=== PATIENT | male | born 1950 | race Caucasian/White ===

== ENCOUNTER 2016-11-30 09:45 | Emergency (ER) | payer OTHER, MEDICARE ==
[~2016-11-30] VITALS: Ht 180.3 cm; Wt 83.0 kg
[~2016-11-30 09:45] MED LIST: CALC500T42 PO; CIAL5TAB PO; MEDR4PAK3 PO; METH4TAB6 PO; PRIL40CA PO; ST J81CH PO; VITA-13 PO
[2016-11-30 09:52] VITALS: BP 138/96; PULSE 82; RESP 16; TEMP 98.9; O2SAT 97
[2016-11-30] MEDS ORDERED: PRED10 PO ×2 (09:59→10:00)
[2016-11-30] MEDS ORDERED: OMEP40CA2 PO (10:00)
--- NOTE | 2016-11-30 11:19 | RADHPO ---
EXAM DATE/TIME: 11/30/2016 10:34 [facility] COMPARISON: None. INDICATIONS : Left elbow pain MEDICAL HISTORY : None. SURGICAL HISTORY : None. ENCOUNTER: Initial ACUITY: 3 days PAIN SCORE: 6/10 LOCATION: Left posterior elbow. 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 In addition, there is intra-articular edema with winging of the anterior fat pad. I do not see an obvious radial head or lyles pracondylar fracture, however. CONCLUSION: 1. Age-indeterminate avulsion injury presumably off of the olecranon 2. Intra-articular edema. No obvious radial head or supracondylar fracture identified, however. Sinan Subramanian MD Board Certified Radiologist. This report was verified electronically.
[2016-11-30] MEDS ORDERED: NORC5TAB PO (11:30)
--- NOTE | 2016-11-30 11:30 | PD ---
HPI Chief Complaint: Musculoskeletal Complaint Time Seen by Provider: 10:17 Travel History International Travel<30 days: No Contact w/Intl Traveler<30days: No Traveled to known affect area: No History of Present Illness HPI 58-year-old male with complaints of left elbow pain. Patient states she's been treated for noninfectious bursitis by an orthopedic surgeon is been on steroids. He said last night he was lifting a heavy object when he believes he hyperextended his elbow. He's noticed increased swelling and pain since then. He also has a small bruise folding in the lateral anterior olecranon pocket. States it hurts him when he ranges his arm. Denies any other complaints. Denies any shoulder pain and wrist pain back pain other extremity pain. PFSH Past Medical History GERD: Yes Musculoskeletal: Yes (BURSITIS) Tetanus Vaccination: > 5 Years Influenza Vaccination: Yes Social History Alcohol Use: Yes (2 BEERS DAILY) Tobacco Use: No Substance Use: No Allergies-Medications (Allergen,Severity, Reaction): Coded Allergies: No Known Allergies (Unverified , 11/30/16) Reported Meds & Prescriptions Reported Meds & Active Scripts Active Dumas (Hydrocodone-Acetaminophen) 5-325 mg Tab 1 Tab PO Q6H PRN Reported Omeprazole 40 Mg Cap 40 Mg PO DAILY Prednisone 10 Mg Tab 10 Mg PO BID Review of Systems Except as stated in HPI: all other systems reviewed are Neg Physical Exam Narrative GENERAL: Well-nourished, well-developed patient in NAD. SKIN: Warm and dry. HEAD: Normocephalic. EYES: No scleral icterus. No injection or drainage. NECK: Supple, trachea midline. No JVD or lymphadenopathy. CARDIOVASCULAR: Regular rate and rhythm without murmurs, gallops, or rubs. RESPIRATORY: Breath sounds equal bilaterally. No accessory muscle use. GASTROINTESTINAL: Abdomen soft, non-tender, nondistended. MUSCULOSKELETAL: No cyanosis, or edema. Left shoulder is nontender full range of motion left wrist is nontender for range of motion, left hand is nontender for range of motion. Left elbow is limited range of motion by pain in flexion and extension. Patient has full supination and pronation. There is a small bruise forming in the lateral aspect of the left elbow. Minimally tender to palpation over the left bruise. There is no joint effusion but there is some soft tissue swelling. No erythema. Range of motion is at least 235 of extension. Right upper extremity atraumatic. Both upper extremities and sensory are intact and compartments are soft. CT LS spine nontender and and No step-off BACK: Nontender without obvious deformity. No CVA tenderness. Data Data Last Documented VS Vital Signs Date Time Temp Pulse Resp B/P Pulse Ox O2 Delivery O2 Flow Rate FiO2 11/30/16 11:32 71 17 132/83 96 Room Air 11/30/16 09:52 98.9 Orders Elbow, Complete (4 Vws) (11/30/16 ) Splint Or Brace Apply/Monitor (11/30/16 11:28) Fiberglass Sugartong Sp Ad Arm (11/30/16 ) Fiberglass Sugartong Sp Ad Arm (11/30/16 ) Sling Cradle Arm (11/30/16 ) MDM Medical Decision Making Medical Screen Exam Complete: Yes Emergency Medical Condition: Yes Differential Diagnosis Fracture, strain, sprain, bursitis. Narrative Course Patient return to the emergency department, he was offered pain medicine and declined. Infectious enteritis is highly unlikely given he does not have any risk factors and has a range motion. There is no joint effusion that I can find. Patient has x-rays performed which does show an age-indeterminate olecranon avulsion fracture. Patient was placed in a splint to follow with his orthopedic surgeon. Prescribed pain medicine and instructions for rice. Diagnosis Primary Impression: Closed olecranon fracture Qualified Code: S52.022A - Closed olecranon fracture, left, initial encounter Additional Instructions: Follow-up with Dr. Beverly and Dr. Mcclendon as scheduled Med/Other Pt SpecificInfo: Prescription(s) given Scripts Hydrocodone-Acetaminophen ([place])5-325 mg Tab1 Tab PO Q6H PRN (PAIN) #15 TAB Ref 0 Prov:Isaiah Orozco MD 11/30/16 Disposition: 01 DISCHARGE HOME Condition: Stable Isaiah Orozco MD Nov 30, 2016 11:30
[2016-11-30 11:32] VITALS: BP 132/83; PULSE 71; RESP 17; O2SAT 96
== END 2016-11-30 12:22 | disposition home or self-care (01) ==
LOC: PHED 09:45
DX: S52.022A Displaced fracture of olecranon process without intraarticular extension of left ulna, initial encounter for closed fracture (principal); X50.0XXA Overexertion from strenuous movement or load, initial encounter; Y93.89 Activity, other specified
CPT/HCPCS: 29125; 73080

== ENCOUNTER 2017-01-31 17:05 | Inpatient (IN) | payer MEDICARE ==
[~2017-01-31] VITALS: Ht 182.9 cm; Wt 83.7 kg
[~2017-01-31 17:05] MED LIST changes: -CALC500T42 PO; -CIAL5TAB PO; -MEDR4PAK3 PO; -METH4TAB6 PO; +NORC5TAB PO; +OMEP40CA2 PO; +PRED10 PO; -PRIL40CA PO; -ST J81CH PO; -VITA-13 PO
[2017-01-31 17:25] VITALS: BP 145/99; PULSE 81; RESP 16; TEMP 98.6; O2SAT 96
--- NOTE | 2017-01-31 18:13 | PD ---
HPI Chief Complaint: Skin Problem Time Seen by Provider: 17:52 Travel History International Travel<30 days: No Contact w/Intl Traveler<30days: No Traveled to known affect area: No History of Present Illness HPI 66-year-old male complains of pain and swelling and drainage from the left elbow. Patient status post left elbow surgery to repair tendon about 2 weeks ago at [facility]. Patient states that he has increasing redness and swelling since then. Patient states the redness will get worse today and this afternoon patient has plus draining from the wound. Patient denies any fever chills. PFSH Past Medical History GERD: Yes Musculoskeletal: Yes (BURSITIS) Influenza Vaccination: Yes Past Surgical History Abdominal Surgery: Yes (HERNIA REPAIR) Social History Alcohol Use: Yes (2 BEERS DAILY) Tobacco Use: No Substance Use: No Allergies-Medications (Allergen,Severity, Reaction): Coded Allergies: No Known Allergies (Unverified , 01/31/17) Reported Meds & Prescriptions Reported Meds & Active Scripts Active Reported Prednisone 10 Mg Tab 10 Mg PO DAILY Review of Systems General / Constitutional: No: Fever Eyes: No: Visual changes HENT: No: Headaches Cardiovascular: No: Chest Pain or Discomfort Respiratory: No: Shortness of Breath Gastrointestinal: No: Abdominal Pain Genitourinary: No: Dysuria Musculoskeletal: Positive: Pain Skin: No Rash Neurologic: No: Weakness Psychiatric: No: Depression Endocrine: No: Polydipsia Hematologic/Lymphatic: No: Easy Bruising Physical Exam Narrative GENERAL: Well-nourished, well-developed patient. SKIN: Warm and dry. HEAD: Normocephalic. EYES: No scleral icterus. No injection or drainage. NECK: Supple, trachea midline. No JVD or lymphadenopathy. CARDIOVASCULAR: Regular rate and rhythm without murmurs, gallops, or rubs. RESPIRATORY: Breath sounds equal bilaterally. No accessory muscle use. GASTROINTESTINAL: Abdomen soft, non-tender, nondistended. MUSCULOSKELETAL: No cyanosis, or edema. BACK: Nontender without obvious deformity. No CVA tenderness. Patient has redness swelling tenderness posterior aspect the left elbow with large amount of pus draining from the surgical wound. Data Data Last Documented VS Vital Signs Date Time Temp Pulse Resp B/P Pulse Ox O2 Delivery O2 Flow Rate FiO2 01/31/17 17:25 98.6 81 16 145/99 96 Orders Complete Blood Count With Diff (01/31/17 18:05) Basic Metabolic Panel (Bmp) (01/31/17 18:05) Prothrombin Time / Inr (Pt) (01/31/17 18:05) Act Partial Throm Time (Ptt) (01/31/17 18:05) Blood Culture (01/31/17 18:05) Wound Culture And Gram Stain (01/31/17 18:05) Iv Access Insert/Monitor (01/31/17 18:05) Ecg Monitoring (01/31/17 18:05) Oximetry (01/31/17 18:05) Vancomycin Inj (Vancomycin Inj) (01/31/17 18:15) MDM Medical Decision Making Medical Screen Exam Complete: Yes Emergency Medical Condition: Yes Differential Diagnosis Differential diagnosis including wound infection, abscess. Narrative Course 66-year-old male with redness swelling tenderness left elbow and large amount of pus draining from the left elbow. Status post left elbow surgery 2 weeks ago. Vancomycin 1 g IV given. I spoke with Dr. Garcia, covering for Dr. Beverly. Advised medical service admission and consult Dr. Beverly in a.m. Diagnosis Primary Impression: Abscess, elbow Admitting Information Admitting Physician Requests: Admit Preston Altman MD Jan 31, 2017 18:13
[2017-01-31] MEDS ORDERED: VANCOMYCIN INJ 1,000 MG in SODIUM CHLOR 0.9% 250 ML INJ 250 ML IV ONE (18:15)
[2017-01-31 18:31] VITALS: RESP 18; O2SAT 98
[2017-01-31 18:50] VITALS: BP 149/94; PULSE 81; RESP 16; O2SAT 98
[2017-01-31 19:01] LABS: AUTOMATED NEUTROPHIL # 7.9 TH/MM3 (1.8-7.7); BASOPHIL # 0.1 TH/MM3 (0-0.2); BASOPHIL % 0.5 % (0.0-2.0); EOSINOPHIL # 0.2 TH/MM3 (0-0.4); HEMATOCRIT 39.2 % (39.0-51.0); HEMO FLAGS DIFF FINAL; LYMPH % 20.9 % (9.0-44.0); LYMPHOCYTE # 2.5 TH/MM3 (1.0-4.8); MEAN CELL VOLUME 91.5 FL (80.0-100.0); MEAN CORPUSCULAR HEMOGLOBIN 30.9 PG (27.0-34.0); MEAN CORPUSCULAR HGB CONC 33.7 % (32.0-36.0); MONO % 8.5 % (0.0-8.0); NEUT % 68.1 % (16.0-70.0); PLATELET COUNT 417 TH/MM3 (150-450); RED BLOOD COUNT 4.28 MIL/MM3 (4.50-5.90); RED CELL DISTRIBUTION WIDTH 13.2 % (11.6-17.2); WHITE BLOOD COUNT 11.7 TH/MM3 (4.0-11.0)
[2017-01-31 19:08] VITALS: BP 156/99; PULSE 77; RESP 18; O2SAT 97
[2017-01-31 19:14] LABS: POTASSIUM 3.6 MEQ/L (3.5-5.1)
[2017-01-31 19:17] LABS: BICARBONATE 29.6 MEQ/L (21.0-32.0)
[2017-01-31 19:20] LABS: APTT (PATIENT) 31.4 SEC (24.3-30.1)
[2017-01-31] MEDS ORDERED: ACETAMINOPHEN 325 MG TAB PO PRN (19:30)
[2017-01-31] MEDS ORDERED: ONDANSETRON HCL 4 MG/2 ML VIAL IV PRN (19:30)
[2017-01-31] MEDS ORDERED: SODIUM CHLORIDE 0.9% FLUSH 5 ML FLUSH IVF PRN (19:30)
[2017-01-31] MEDS: SODIUM CHLOR 0.9% 1000 ML INJ 1,000 ML IV SCH (20:16)
[2017-01-31 20:21] VITALS: O2SAT 97
[2017-01-31] MEDS: SODIUM CHLORIDE 0.9% FLUSH 5 ML FLUSH IVF SCH (21:00)
[2017-01-31 21:27] VITALS: BP 147/89; PULSE 80; RESP 18; O2SAT 96
[2017-02-01] VITALS: BP 155/88; PULSE 69; RESP 16; TEMP 98.2; O2SAT 93
[2017-02-01 04:00] VITALS: BP 148/81; PULSE 118; RESP 18; TEMP 98.3; O2SAT 96
[2017-02-01] MEDS: SODIUM CHLOR 0.9% 1000 ML INJ 1,000 ML IV SCH ×2 (05:59→16:22)
[2017-02-01] MEDS ORDERED: VANCOMYCIN INJ 1,000 MG in SODIUM CHLOR 0.9% 250 ML INJ 250 ML IV SCH (07:00)
--- NOTE | 2017-02-01 07:12 | PD.CONS ---
cc: Demarcus Beverly MD HPI Service Orthopedic Surgeons Consult Requested By Dr. Altman Reason for Consult abscess left elbow Primary Care Physician Florencio Mcclendon MD Admission Diagnosis left elbow abscess Diagnoses: (1) Septic olecranon bursitis of left elbow Chief Complaint: left elbow drainage History of Present Illness This 66-year-old male is approximately 2-1/2 weeks status post a triceps tendon repair of the left elbow. The patient was seen recently as an outpatient for suture removal. He had mild swelling but no pain or drainage at that time. Yesterday he developed the onset of drainage from the proximal aspect of the incision. He denies any increasing pain. He denies any fevers. He presented to [facility]. The on-call orthopedist instructed the ER staff to admit the patient to the medical service and contact the undersigned today. He has been transported to the main hospital for definitive care. Review of Systems Reviewed and well outlined in the medical record Past Family Social History Past Medical History PFSH Past Medical History GERD: Yes Musculoskeletal: Yes (BURSITIS) Influenza Vaccination: Yes Past Surgical History Abdominal Surgery: Yes (HERNIA REPAIR) Musculoskeletal: Back surgery, triceps tendon repair Social History Alcohol Use: Yes (2 BEERS DAILY) Tobacco Use: No Substance Use: No Allergies-Medications (Allergen,Severity, Reaction): Coded Allergies: No Known Allergies (Unverified , 01/31/17) Reported Meds & Prescriptions Reported Meds & Active Scripts Active Reported Prednisone 10 Mg Tab 10 Mg PO DAILY Review of Systems General / Constitutional: No: Fever Eyes: No: Visual changes HENT: No: Headaches Cardiovascular: No: Chest Pain or Discomfort Respiratory: No: Shortness of Breath Gastrointestinal: No: Abdominal Pain Genitourinary: No: Dysuria Musculoskeletal: Positive: Pain Skin: No Rash Neurologic: No: Weakness Psychiatric: No: Depression Endocrine: No: Polydipsia Hematologic/Lymphatic: No: Easy Bruising Allergies: Coded Allergies: No Known Allergies (Unverified , 01/31/17) Active Ordered Medications Current Medications Medications (Trade) Dose Ordered Sig/Ciara Route Start Time Stop Time Status Last Admin (Zofran Inj) 4 mg Q6H PRN IV 01/31/17 19:30 (Tylenol) 650 mg Q4H PRN PO 01/31/17 19:30 02/01/17 06:19 (NS Flush) 2 ml BID IVF 01/31/17 21:00 01/31/17 21:00 IV Flush 2 ml 2 ml UNSCH PRN IVF 01/31/17 19:30 Vancomycin HCl 1000 mg/Sodium Chloride 250 ml @ 250 mls/hr Q12H IV 02/01/17 07:00 02/01/17 06:21 (NS 1000 ml Inj) 1,000 ml @ 100 mls/hr Q10H IV 01/31/17 19:30 02/01/17 05:59 Reported Meds & Active Scripts Active Reported Prednisone 10 Mg Tab 10 Mg PO DAILY Physical Exam Vital Signs Vital Signs Date Time Temp Pulse Resp B/P Pulse Ox O2 Delivery O2 Flow Rate FiO2 02/01/17 04:00 98.3 118 18 148/81 96 02/01/17 00:00 98.2 69 16 155/88 93 01/31/17 23:35 Room Air 01/31/17 22:19 18 96 01/31/17 21:27 80 18 147/89 96 Room Air 01/31/17 21:27 86 18 01/31/17 20:21 97 21 01/31/17 19:08 78 18 01/31/17 19:08 77 18 156/99 97 Room Air 01/31/17 18:50 81 16 149/94 98 Room Air 01/31/17 18:31 18 98 Room Air 01/31/17 17:25 98.6 81 16 145/99 96 Physical Exam There is a dressing on the left elbow. This was removed. There is dried serous drainage on the dressing. There is no active drainage. There is moderate swelling. There is slight induration and erythema. He has restricted range of motion. There is minimal swelling of the forearm. He moves his wrist and fingers freely. His good pulses. He has good capillary refill and sensation. Laboratory Laboratory Tests Test 01/31/17 18:20 White Blood Count 11.7 Red Blood Count 4.28 Hemoglobin 13.2 Hematocrit 39.2 Mean Corpuscular Volume 91.5 Mean Corpuscular Hemoglobin 30.9 Mean Corpuscular Hemoglobin 33.7 Concent Red Cell Distribution Width 13.2 Platelet Count 417 Mean Platelet Volume 7.6 Neutrophils (%) (Auto) 68.1 Lymphocytes (%) (Auto) 20.9 Monocytes (%) (Auto) 8.5 Eosinophils (%) (Auto) 2.0 Basophils (%) (Auto) 0.5 Neutrophils # (Auto) 7.9 Lymphocytes # (Auto) 2.5 Monocytes # (Auto) 1.0 Eosinophils # (Auto) 0.2 Basophils # (Auto) 0.1 CBC Comment DIFF FINAL Differential Comment Prothrombin Time 11.0 Prothromb Time International 1.0 Ratio Activated Partial 31.4 Thromboplast Time Sodium Level 143 Potassium Level 3.6 Chloride Level 104 Carbon Dioxide Level 29.6 Anion Gap 9 Blood Urea Nitrogen 15 Creatinine 1.10 Estimat Glomerular Filtration 67 Rate Random Glucose 76 Calcium Level 9.1 Date/Time Procedure Status Source Growth 01/31/17 18:25 Aerobic Blood Culture Received Blood Peripheral Pending 01/31/17 18:25 Anaerobic Blood Culture Received Blood Peripheral Pending 01/31/17 18:20 Gram Stain Received Wound Elbow Pending 01/31/17 18:20 Wound Culture Received Wound Elbow Pending Result Diagram: 01/31/17 1820 01/31/17 1820 Assessment & Plan Problem List: (1) Septic olecranon bursitis of left elbow (2) GERD (gastroesophageal reflux disease) Assessment and Plan The findings were discussed. Cultures are pending. Recommendation given for irrigation debridement surgically based upon the fact that anchors are in place for the triceps tendon repair. The nature of the procedure, the risks, expected benefits, as well as the postoperative expectations have been discussed with him in detail. In addition, the alternatives to treatment and risks of same were discussed. The patient acknowledges full understanding and consents to it. Demarcus Beverly MD Feb 01, 2017 07:12
[2017-02-01 08:00] VITALS: BP 134/63; PULSE 71; RESP 20; TEMP 99; O2SAT 95
[2017-02-01] MEDS: SODIUM CHLORIDE 0.9% FLUSH 5 ML FLUSH IVF SCH ×2 (08:16→20:02)
--- NOTE | 2017-02-01 09:16 | RADRPT ---
EXAM DATE/TIME: 02/01/2017 07:29 [facility] COMPARISON: No previous studies available for comparison. INDICATIONS : Left elbow abscess. MEDICAL HISTORY : None. SURGICAL HISTORY : None. Left elbow tendon repair 2 weeks ago. ENCOUNTER: Subsequent ACUITY: 2 weeks PAIN SCORE: 0/10 LOCATION: Left elbow FINDINGS: Two view examination of the left elbow demonstrates irregularity of the cortical margin overlying the olecranon with regional soft tissue swelling. There is also some periosteal reaction along the dorsa l surface of the proximal ulna with faint soft tissue calcification extending cephalad. No findings o f joint effusion or acute fracture. CONCLUSION: 1. Regional soft tissue swelling with disruption of the cortical margin of the olecranon concerning f or a cellulitis and possible osteomyelitis. 2. Periosteal reaction along the dorsum of the proximal humerus and calcification in the more cephala d soft tissues again, concerning for regional inflammation. Sinan Subramanian MD on February 01, 2017 at 9:09 Board Certified Radiologist. This report was verified electronically.
[2017-02-01] MEDS ORDERED: Vancomycin Consult Pharmacy 1 EA OTHER SCH (09:45)
[2017-02-01] MEDS ORDERED: SODIUM CHLORIDE 0.9% FLUSH 5 ML FLUSH FLUSH PRN (10:00)
[2017-02-01] MEDS ORDERED: MORPHINE SULFATE 4 MG/ML INJ IV PRN (10:00)
[2017-02-01] MEDS ORDERED: NALOXONE HCL 0.4 MG/ML AMP IV PRN (10:00)
--- NOTE | 2017-02-01 10:02 | HHI.HP ---
HPI Service [facility] Primary Care Physician Florencio Mcclendon MD Admission Diagnosis left elbow abscess Diagnoses: (1) Septic olecranon bursitis of left elbow Diagnosis: Principal Chief Complaint: Elbow infection Travel History International Travel<30 Days: No Contact w/Intl Traveler <30 Da: No Traveled to Known Affected Are: No History of Present Illness 66-year-old male with past medical history of GERD and fibromyalgia who presented with left elbow pain, swelling, and drainage after surgery 2 weeks ago. 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 He had surgical repair done 2 weeks ago. He states that yesterday he removed the dressing and noted that it was draining pus and was more tender. He states that until then he hasn't noticed any change in his postsurgical pain or range of motion of his left elbow. He denies any fevers or chills. He was seen by orthopedic surgery who plans to perform I&D in the OR today. He had been taking oxycodone for pain for the first week after surgery, has not required any pain medication for the last week. The patient complains of a dull headache. He has some back discomfort currently. He denies any chest pain, shortness breath, nausea, vomiting, numbness, tingling. The patient is on 10 mg of prednisone daily for fibromyalgia by his PCP. He was started on 30 mg last June. Review of Systems Except as stated in HPI: all other systems reviewed are Neg Past Family Social History Past Medical History GERD Fibromyalgia Past Surgical History Left elbow tendon repair 2 weeks. Hernia surgery Back surgery for herniated disc Reported Medications Omeprazole Prednisone 10 Mg Tab 10 Mg PO DAILY Allergies: Coded Allergies: No Known Allergies (Unverified , 01/31/17) Active Ordered Medications Current Medications Medications (Trade) Dose Ordered Sig/Ciara Route Start Time Stop Time Status Last Admin (Zofran Inj) 4 mg Q6H PRN IV 01/31/17 19:30 (Tylenol) 650 mg Q4H PRN PO 01/31/17 19:30 02/01/17 06:19 (NS Flush) 2 ml BID IVF 01/31/17 21:00 01/31/17 21:00 IV Flush 2 ml 2 ml UNSCH PRN IVF 01/31/17 19:30 Vancomycin HCl 1000 mg/Sodium Chloride 250 ml @ 250 mls/hr Q12H IV 02/01/17 07:00 02/01/17 06:21 (NS 1000 ml Inj) 1,000 ml @ 100 mls/hr Q10H IV 01/31/17 19:30 02/01/17 05:59 Family History Father along time ago of an aneurysm Mother is alive and well Social History Drinks 2 beers daily Denies any tobacco or drug use Physical Exam Vital Signs Vital Signs Date Time Temp Pulse Resp B/P Pulse Ox O2 Delivery O2 Flow Rate FiO2 02/01/17 08:00 99.0 71 20 134/63 95 02/01/17 07:51 Room Air 21 02/01/17 04:00 98.3 118 18 148/81 96 02/01/17 00:00 98.2 69 16 155/88 93 01/31/17 23:35 Room Air 01/31/17 22:19 18 96 01/31/17 21:27 80 18 147/89 96 Room Air 01/31/17 21:27 86 18 01/31/17 20:21 97 21 01/31/17 19:08 78 18 01/31/17 19:08 77 18 156/99 97 Room Air 01/31/17 18:50 81 16 149/94 98 Room Air 01/31/17 18:31 18 98 Room Air 01/31/17 17:25 98.6 81 16 145/99 96 Physical Exam GENERAL: Well-developed well-nourished. In no acute distress. SKIN: Warm and dry. Left elbow as below. HEENT: Normocephalic. Pupils equal and round. Mucous membranes pink and moist. CARDIOVASCULAR: Regular rate and rhythm. No murmur appreciated. RESPIRATORY: No accessory muscle use. Clear to auscultation. Breath sounds equal bilaterally. GASTROINTESTINAL: Abdomen soft, non-tender, nondistended. Bowel sounds x4. MUSCULOSKELETAL: Left elbow in a dressing, CDI. Slightly painful ROM. Left forearm swelling. Pulses 2+ bilateral upper extremities. No clubbing or cyanosis. No edema. NEUROLOGICAL: Awake and alert. No focal neurological deficits. Moves upper and lower extremities spontaneously. Normal speech. PSYCHIATRIC: Appropriate mood and affect; insight and judgment normal. Laboratory Laboratory Tests Test 01/31/17 18:20 White Blood Count 11.7 Red Blood Count 4.28 Hemoglobin 13.2 Hematocrit 39.2 Mean Corpuscular Volume 91.5 Mean Corpuscular Hemoglobin 30.9 Mean Corpuscular Hemoglobin 33.7 Concent Red Cell Distribution Width 13.2 Platelet Count 417 Mean Platelet Volume 7.6 Neutrophils (%) (Auto) 68.1 Lymphocytes (%) (Auto) 20.9 Monocytes (%) (Auto) 8.5 Eosinophils (%) (Auto) 2.0 Basophils (%) (Auto) 0.5 Neutrophils # (Auto) 7.9 Lymphocytes # (Auto) 2.5 Monocytes # (Auto) 1.0 Eosinophils # (Auto) 0.2 Basophils # (Auto) 0.1 CBC Comment DIFF FINAL Differential Comment Prothrombin Time 11.0 Prothromb Time International 1.0 Ratio Activated Partial 31.4 Thromboplast Time Sodium Level 143 Potassium Level 3.6 Chloride Level 104 Carbon Dioxide Level 29.6 Anion Gap 9 Blood Urea Nitrogen 15 Creatinine 1.10 Estimat Glomerular Filtration 67 Rate Random Glucose 76 Calcium Level 9.1 Date/Time Procedure Status Source Growth 01/31/17 18:25 Aerobic Blood Culture Received Blood Peripheral Pending 01/31/17 18:25 Anaerobic Blood Culture Received Blood Peripheral Pending 01/31/17 18:20 Gram Stain Received Wound Elbow Pending 01/31/17 18:20 Wound Culture Received Wound Elbow Pending Result Diagram: 01/31/17 1820 01/31/17 1820 Imaging Last Impressions Elbow X-Ray 02/01/17 0000 Signed Impressions: Service Date/Time: Wednesday, February 01, 2017 07:29 - CONCLUSION: 1. Regional soft tissue swelling with disruption of the cortical margin of the olecranon concerning for a cellulitis and possible osteomyelitis. 2. Periosteal reaction along the dorsum of the proximal humerus and calcification in the more cephalad soft tissues again, concerning for regional inflammation. Sinan Subramanian MD Assessment and Plan Problem List: (1) Septic olecranon bursitis of left elbow ICD Code: M70.22 Status: Acute Assessment and Plan 66-year-old male with past medical history of GERD and fibromyalgia who presented with left elbow pain, swelling, and drainage after surgery 2 weeks ago Septic postoperative olecranon bursitis: X-ray reviewed: Shows regional soft tissue swelling instruction of the cortical margin of the olecranon concerning for cellulitis and possibly osteomyelitis. Periosteal reaction on the dorsum of the proximal humerus and calcification in the soft tissues concerning for regional information. Tmax 99.0. WBC 11.7. -The patient's orthopedic surgeon, Dr. Beverly, has been consulted, planning for operative debridement. -Continue IV vancomycin and follow-up wound and blood cultures. -Pain control with oxycodone and IV morphine as needed. Fibromyalgia: Ideally the patient would not be on steroids with acute infection. Decrease dose to 5 mg daily. GERD: Chronic, stable. Continue PPI. DVT prophylaxis: SCDs. Chemical prophylaxis per surgery. Discussed Condition With Patient, RN, Mairto Ochoa Feb 01, 2017 10:02
[2017-02-01] MEDS: DOCUSATE SODIUM 100 MG CAP PO SCH ×2 (11:19→20:07)
[2017-02-01 12:00] VITALS: BP 140/86; PULSE 69; RESP 20; TEMP 97.2; O2SAT 97
[2017-02-01] MEDS ORDERED: PROPOFOL 200 MG/20 ML AMP IV ONE (12:00)
[2017-02-01] MEDS ORDERED: ONDANSETRON HCL 4 MG/2 ML VIAL IV PUSH ONE (12:00)
[2017-02-01] MEDS ORDERED: NEOMYCIN/POLYMYXIN 1 ML G.U. IRRIGANT IR ONE (12:29)
--- NOTE | 2017-02-01 13:14 | PD.OP ---
cc: Demarcus Beverly MD Operative Report Date of Surgery: Feb 01, 2017 Preoperative Diagnosis: (1) Septic olecranon bursitis of left elbow Postoperative Diagnosis: (1) Septic olecranon bursitis of left elbow Procedure: Irrigation and debridement left septic olecranon bursitis with application of wound VAC Anesthesia: Gen. Surgeon: Demarcus Beverly Blanket Maker(s): Dulce Dewitt PA-C ([place]) The surgical procedure was assisted by my physician's special ed assistant. Her presence was necessary throughout the case for manipulation and positioning of the surgical extremity. My PA was assisting me throughout the duration of this procedure. The skill set of the physician special ed assistant was medically necessary to complete this procedure. During the surgical case the surgical oncologist was working at the back table and the physician special ed assistant was directly assisting me. Operation and Findings: Indications: This 66-year-old males approximately 2 and appendectomy weeks status post a left biceps tendon repair. The patient was doing well until yesterday when he developed the onset of drainage from the incision. He presented to [facility]. He was admitted to the medical service. There was active drainage from the incision line and through a small sinus medial to it. Recommendations were given for operative irrigation and debridement. Procedure and findings: Patient was taken to the operative suite and after undergoing an adequate level of general anesthesia was kept supine on the operating table. The patient stated on his regular vancomycin schedule. There was copious drainage from the posterior elbow through a sinus in the central aspect medial to the incision line. The left upper extremity was prepped and draped in usual sterile fashion with Betadine. The previous incision was utilized. This was carried down through skin and subcutaneous tissue with a knife. Previous suture material was removed. The triceps repair was noted to be intact. All necrotic tissue was debrided sharply. Both blunt and sharp dissection were carried out removing any pockets in the subcutaneous tissue. The patient's skin was very friable at the sinus site. This was excised sharply. This did leave a small defect. The wound was thoroughly irrigated with pulse lavage. Cultures were taken prior to the procedure. The wound was closed over a Hemovac drain with 2-0 Vicryl on the subcutaneous tense tissue and 3-0 nylon on the skin. A wound VAC was then applied over the 2 cm defect. Sterile dressings were applied, the patient was awakened transferred to hospital bed and taken to the recovery room in stable condition. Estimated blood loss: 50 cc Complications: None Demarcus Beverly MD Feb 01, 2017 13:14
[2017-02-01] MEDS ORDERED: SODIUM CHLORIDE 0.9% FLUSH 5 ML FLUSH IVF PRN (13:15)
[2017-02-01] MEDS ORDERED: *MEPERIDINE 25 MG INJ VIAL PERIprocedural Use ONLY ONE (13:40)
[2017-02-01] MEDS ORDERED: MORPHINE SULFATE 4 MG/ML INJ ONE (13:44)
[2017-02-01] MEDS ORDERED: *morphine SULFATE 8 MG/ML PERIprocedure ONLY ONE (13:48)
[2017-02-01] MEDS ORDERED: VANCOMYCIN 1,500 MG/NS 500 ML IV SCH ×2 (14:00)
[2017-02-01] MEDS: DEXT 5%-NACL 0.45% 1000 ML INJ 1,000 ML IV SCH ×2 (14:00→23:47)
[2017-02-01] MEDS: VANCOMYCIN 1,500 MG/NS 500 ML IV SCH ×2 (14:47)
[2017-02-01] MEDS ORDERED: DO NOT ADM ANY ANTICOAGULANT DRUGS XX PRN (15:15)
[2017-02-01 16:00] VITALS: BP 141/72; PULSE 79; RESP 20; TEMP 98.8; O2SAT 97
[2017-02-01] MEDS: oxyCODONE/ACETAMINOPHEN 10 MG/325 MG TAB PO PRN (16:48)
[2017-02-01 20:57] VITALS: BP 120/74; PULSE 82; RESP 18; TEMP 98.3; O2SAT 94
[2017-02-01] MEDS ORDERED: SODIUM CHLORIDE 0.9% FLUSH 5 ML FLUSH FLUSH SCH (21:00)
[2017-02-02] VITALS (7 sets, daily range): BP systolic 113–157; BP diastolic 55–87; PULSE 63–78; RESP 16–20; TEMP 97.3–98.2; O2SAT 94–98
[2017-02-02] MEDS: SODIUM CHLOR 0.9% 1000 ML INJ 1,000 ML IV SCH (01:30)
[2017-02-02] MEDS: oxyCODONE/ACETAMINOPHEN 10 MG/325 MG TAB PO PRN (06:00)
[2017-02-02 06:40] LABS: AUTOMATED NEUTROPHIL # 7.2 TH/MM3 (1.8-7.7); BASOPHIL % 0.2 % (0.0-2.0); EOSINOPHIL # 0.1 TH/MM3 (0-0.4); EOSINOPHIL % 0.6 % (0.0-4.0); HEMO FLAGS DIFF FINAL; LYMPH % 13.3 % (9.0-44.0); LYMPHOCYTE # 1.2 TH/MM3 (1.0-4.8); MEAN CELL VOLUME 90.9 FL (80.0-100.0); MEAN CORPUSCULAR HEMOGLOBIN 31.6 PG (27.0-34.0); MEAN CORPUSCULAR HGB CONC 34.8 % (32.0-36.0); MONO % 7.7 % (0.0-8.0); NEUT % 78.2 % (16.0-70.0); PLATELET COUNT 369 TH/MM3 (150-450); RED BLOOD COUNT 3.96 MIL/MM3 (4.50-5.90); RED CELL DISTRIBUTION WIDTH 13.8 % (11.6-17.2); WHITE BLOOD COUNT 9.2 TH/MM3 (4.0-11.0)
[2017-02-02 07:09] LABS: ALT (GPT) 15 U/L (12-78); ANION GAP 7 MEQ/L (5-15); AST (GOT) 7 U/L (15-37); BICARBONATE 26.1 MEQ/L (21.0-32.0); BLOOD UREA NITROGEN 9 MG/DL (7-18); CHLORIDE 106 MEQ/L (98-107); GLOMERULAR FILTRATION RATE 98 ML/MIN (>89); POTASSIUM 4.1 MEQ/L (3.5-5.1); SODIUM (NA) 139 MEQ/L (136-145)
[2017-02-02 07:12] LABS: ALKALINE PHOSPHATASE 63 U/L (45-117); TOTAL BILIRUBIN ADULT 0.3 MG/DL (0.2-1.0)
--- NOTE | 2017-02-02 07:28 | PD.ORT.PN ---
Subjective Post Op Day #: 1 Subjective Remarks Pt sitting upright in bed, awake and answering questions appropriately, sling in tact. Admits left elbow pain is well under control. No other complaints at this time. Objective Vitals Vital Signs Date Time Temp Pulse Resp B/P Pulse Ox O2 Delivery O2 Flow Rate FiO2 02/02/17 05:25 97.3 66 20 131/ 98 02/02/17 00:28 97.9 74 18 143/74 95 02/01/17 20:57 98.3 82 18 120/74 94 02/01/17 19:30 Nasal Cannula 2.00 02/01/17 16:00 98.8 79 20 141/72 97 02/01/17 14:20 72 16 95 Nasal Cannula 2 02/01/17 14:15 97.8 75 16 134/78 95 Nasal Cannula 2 02/01/17 14:00 70 15 134/82 94 Nasal Cannula 2 02/01/17 13:53 15 02/01/17 13:45 69 15 138/84 98 Nasal Cannula 3 02/01/17 13:33 98.5 68 20 149/86 96 Nasal Cannula 3 02/01/17 12:00 97.2 69 20 140/86 97 02/01/17 08:00 99.0 71 20 134/63 95 02/01/17 07:51 Room Air 21 I/O 02/01/17 02/01/17 02/01/17 02/02/17 02/02/17 02/02/17 07:00 15:00 23:00 07:00 15:00 23:00 Intake Total 654 ml 500 ml 800 ml 800 ml Output Total 55 ml 200 ml 500 ml Balance 654 ml 445 ml 600 ml 300 ml Intake Oral 0 ml IV Total 654 ml 100 ml 800 ml 800 ml Other 400 ml Output Urine Total 200 ml 500 ml Drainage Total 5 ml 0 ml Estimated Blood Loss 50 ml # Voids 2 0 # Bowel Movements 0 Result Diagram: 02/02/17 0552 02/02/17 0552 Other Results Microbiology 02/01/17 Gram Stain - Final, Resulted 02/01/17 Wound Culture, Resulted Pending 02/01/17 Acid Fast Stain, Received Pending 02/01/17 Mycobacterial Culture, Received Pending 02/01/17 Fungal Smear - Final, Resulted NO FUNGAL ELEMENTS SEEN. 02/01/17 Fungal Culture, Resulted Pending 02/01/17 Gram Stain, Received Pending 02/01/17 Wound Culture, Received Pending 02/01/17 Fungal Smear, Received Pending 02/01/17 Fungal Culture, Received Pending Imaging Last 48 hours Impressions Elbow X-Ray 02/01/17 0000 Signed Impressions: Service Date/Time: Wednesday, February 01, 2017 07:29 - CONCLUSION: 1. Regional soft tissue swelling with disruption of the cortical margin of the olecranon concerning for a cellulitis and possible osteomyelitis. 2. Periosteal reaction along the dorsum of the proximal humerus and calcification in the more cephalad soft tissues again, concerning for regional inflammation. Sinan Subramanian MD Procedures Irrigation and debridement left septic olecranon bursitis with application of wound VAC (02/01/17) Objective Remarks LUE: Dressing dry and intact. Wac vac and hemavac drain in place and draining appropriately. Sling in place. Tender to palpation with mild swelling around incision site. Appropriate range of motion expected post operatively. Freely able to move wrist and digits. Good cap refill. 2+ pulses. Neurovascular intact. Assessment & Plan Ortho Post Op Day #: 1 Problem List: (1) Septic olecranon bursitis of left elbow (2) Closed olecranon fracture Assessment and Plan Irrigation and debridement left septic olecranon bursitis with application of wound VAC POD #1 s/p Triceps tendon repair Ortho status stable. Progress rehab per protocol, up to 70 degrees of motion. Okay to come out of sling and into ROM brace. Culture and G/S pending. Appreciate medicine's involvement in care. Discharge pending. Dulce Dewitt Feb 02, 2017 07:28
--- NOTE | 2017-02-02 08:31 | HHI.PR ---
Subjective Remarks f/u for elbow bursitis pain partially controlled with pain medications, no fever, nausea, vomiting or diarrhea. Objective Vitals Vital Signs Date Time Temp Pulse Resp B/P Pulse Ox O2 Delivery O2 Flow Rate FiO2 02/02/17 05:25 97.3 66 20 131/ 98 02/02/17 00:28 97.9 74 18 143/74 95 02/01/17 20:57 98.3 82 18 120/74 94 02/01/17 19:30 Nasal Cannula 2.00 02/01/17 16:00 98.8 79 20 141/72 97 02/01/17 14:20 72 16 95 Nasal Cannula 2 02/01/17 14:15 97.8 75 16 134/78 95 Nasal Cannula 2 02/01/17 14:00 70 15 134/82 94 Nasal Cannula 2 02/01/17 13:53 15 02/01/17 13:45 69 15 138/84 98 Nasal Cannula 3 02/01/17 13:33 98.5 68 20 149/86 96 Nasal Cannula 3 02/01/17 12:00 97.2 69 20 140/86 97 I/O 02/01/17 02/01/17 02/01/17 02/02/17 02/02/17 02/02/17 07:00 15:00 23:00 07:00 15:00 23:00 Intake Total 654 ml 500 ml 800 ml 800 ml Output Total 55 ml 200 ml 500 ml Balance 654 ml 445 ml 600 ml 300 ml Intake Oral 0 ml IV Total 654 ml 100 ml 800 ml 800 ml Other 400 ml Output Urine Total 200 ml 500 ml Drainage Total 5 ml 0 ml Estimated Blood Loss 50 ml # Voids 2 0 # Bowel Movements 0 Result Diagram: 02/02/17 0552 02/02/17 0552 Objective Remarks GENERAL: Well-developed well-nourished. In no acute distress. SKIN: Warm and dry. Left elbow as below. HEENT: Normocephalic. Pupils equal and round. CARDIOVASCULAR: Regular rate and rhythm. No murmur appreciated. RESPIRATORY: No accessory muscle use. Clear to auscultation. Breath sounds equal bilaterally. GASTROINTESTINAL: Abdomen soft, non-tender, nondistended. Bowel sounds x4. MUSCULOSKELETAL: Left elbow in a dressing, CDI. Hand good range of motion, no distal swelling or erythema. No edema. NEUROLOGICAL: Awake and alert. No focal neurological deficits. Moves upper and lower extremities spontaneously. Normal speech. PSYCHIATRIC: Appropriate mood and affect; insight and judgment normal. Procedures Irrigation and debridement left septic olecranon bursitis with application of wound VAC A/P Problem List: (1) Septic olecranon bursitis of left elbow ICD Code: M70.22 Status: Acute Assessment and Plan 66-year-old male with past medical history of GERD and fibromyalgia who presented with left elbow pain, swelling, and drainage after surgery 2 weeks ago Septic postoperative olecranon bursitis: Initially we close olecranon fracture status post triceps tendon repair, X-ray reviewed: Shows regional soft tissue swelling instruction of the cortical margin of the olecranon concerning for cellulitis and possibly osteomyelitis. Periosteal reaction on the dorsum of the proximal humerus and calcification in the soft tissues concerning for regional information. Orthopedics Dr. Beverly, has been consulted, had Irrigation and debridement left septic olecranon bursitis with application of wound VAC, follow-up wound cultures, continue intravenous vancomycin for now, monitor creatinine, blood cultures negative to date, continue pain control with oxycodone and IV morphine as needed. Leukocytosis resolved. Range of motion per orthopedics. Fibromyalgia: Ideally the patient would not be on steroids with acute infection. Continue prednisone 5 mg daily. GERD: Chronic, stable. Continue PPI. DVT prophylaxis: SCDs. Chemical prophylaxis per surgery. Discharge Planning Discharge in a day or 2 once cultures are finalized Nicolle Fischer MD Feb 02, 2017 08:31
[2017-02-02] MEDS: PANTOPRAZOLE SOD 40 MG DELAYED RELEASE TAB PO SCH (09:00)
[2017-02-02] MEDS: SODIUM CHLORIDE 0.9% FLUSH 5 ML FLUSH IVF SCH ×2 (09:00→20:44)
[2017-02-02] MEDS: DOCUSATE SODIUM 100 MG CAP PO SCH ×2 (09:00→20:45)
[2017-02-02] MEDS: predniSONE 5 MG TAB PO SCH (09:00)
[2017-02-02] MEDS: VANCOMYCIN 1,500 MG/NS 500 ML IV SCH ×2 (09:01)
[2017-02-02] MEDS: DEXT 5%-NACL 0.45% 1000 ML INJ 1,000 ML IV SCH (09:02)
--- NOTE | 2017-02-02 10:37 | EKG ---
Date Performed: 02/01/2017 Time Performed: 11:44:00 PTAGE: 66 years EKG: Sinus rhythm WITH FIRST DEGREE AV BLOCK INFERIOR MYOCARDIAL INFARCTION , OF INDETERMINATE AGE ABNORMAL ECG NO PREVIOUS TRACING DOCTOR: Gasper Jett Interpretating Date/Time 02/02/2017 10:35:51
[2017-02-02] MEDS: oxyCODONE/ACETAMINOPHEN 5 MG/325 MG TAB PO PRN ×2 (12:02→18:06)
[2017-02-02] MEDS ORDERED: VANCOMYCIN 1,500 MG/NS 500 ML IV SCH ×2 (20:00)
[2017-02-03] VITALS (7 sets, daily range): BP systolic 140–154; BP diastolic 81–92; PULSE 61–78; RESP 16–20; TEMP 97.3–98.2; O2SAT 94–97
[2017-02-03] MEDS: oxyCODONE/ACETAMINOPHEN 10 MG/325 MG TAB PO PRN ×4 (00:03→19:01)
--- NOTE | 2017-02-03 07:05 | PD.ORT.PN ---
Subjective Post Op Day #: 2 Pain Scale: 4 Subjective Remarks The patient is awake alert and answers questions appropriately. He is having mild left elbow pain. He has no other specific complaint. Objective Vitals Vital Signs Date Time Temp Pulse Resp B/P Pulse Ox O2 Delivery O2 Flow Rate FiO2 02/03/17 04:00 97.8 61 18 154/92 95 02/03/17 00:00 98.0 62 18 140/84 94 02/02/17 20:00 97.8 75 18 145/87 95 02/02/17 19:45 Nasal Cannula 2.00 02/02/17 16:00 98.2 76 16 129/75 95 02/02/17 12:07 97.8 63 16 157/81 94 02/02/17 09:06 97.7 78 16 136/81 96 02/02/17 08:31 97 21 I/O 02/02/17 02/02/17 02/02/17 02/03/17 02/03/17 02/03/17 07:00 15:00 23:00 07:00 15:00 23:00 Intake Total 800 ml 720 ml 600 ml 240 ml Output Total 500 ml 1000 ml Balance 300 ml 720 ml 600 ml -760 ml Intake Oral 720 ml 600 ml 240 ml IV Total 800 ml Output Urine Total 500 ml 1000 ml Drainage Total 0 ml # Voids 3 2 # Bowel Movements 0 0 Result Diagram: 02/02/17 0552 02/02/17 0552 Other Results Microbiology Date/Time Procedure Status Source Growth 02/01/17 13:35 Gram Stain Received Wound Elbow Pending 02/01/17 13:35 Wound Culture Received Wound Elbow Pending 02/01/17 13:35 Fungal Smear Received Wound Elbow Pending 02/01/17 13:35 Fungal Culture Received Wound Elbow Pending 02/01/17 12:18 Gram Stain - Final Resulted Wound Elbow 02/01/17 12:18 Wound Culture - Preliminary Resulted Staphylococcus Aureus Gram Negative Jose 02/01/17 12:18 Fungal Smear - Final Resulted Wound Elbow NO FUNGAL ELEMENTS SEEN. 02/01/17 12:18 Fungal Culture Resulted Wound Elbow Pending 02/01/17 12:18 Acid Fast Stain - Final Resulted Wound Elbow NO ACID FAST BACILLI SEEN 02/01/17 12:18 Mycobacterial Culture Resulted Wound Elbow Pending 01/31/17 18:25 Aerobic Blood Culture - Preliminary Resulted Blood Peripheral NO GROWTH IN 2 DAYS 01/31/17 18:25 Anaerobic Blood Culture - Preliminary Resulted Blood Peripheral NO GROWTH IN 2 DAYS Imaging Last 48 hours Impressions Elbow X-Ray 02/01/17 0000 Signed Impressions: Service Date/Time: Wednesday, February 01, 2017 07:29 - CONCLUSION: 1. Regional soft tissue swelling with disruption of the cortical margin of the olecranon concerning for a cellulitis and possible osteomyelitis. 2. Periosteal reaction along the dorsum of the proximal humerus and calcification in the more cephalad soft tissues again, concerning for regional inflammation. Sinan Subramanian MD Procedures Irrigation and debridement left septic olecranon bursitis with application of wound VAC (02/01/17) Objective Remarks LUE: Dressing dry and intact. Wound vac and hemovac drain in place and draining appropriately. Sling in place. He has restricted active range of motion. Freely able to move wrist and digits. Good cap refill. 2+ pulses. Neurovascular intact. Assessment & Plan Ortho Post Op Day #: 2 Problem List: (1) Septic olecranon bursitis of left elbow (2) Closed olecranon fracture Assessment and Plan Irrigation and debridement left septic olecranon bursitis with application of wound VAC POD #2 s/p Triceps tendon repair Ortho status stable. Progress rehab per protocol, up to 70 degrees of motion. Okay to come out of sling and into ROM brace. Culture positive for staph aureus and a gram-negative jose. Final cultures and KORY pending. DC Hemovac and begin daily dressing changes. VAC dressing change today per protocol. Discharge pending finalization of cultures. Demarcus Beverly MD Feb 03, 2017 07:05
[2017-02-03] MEDS ORDERED: OXYC1TAB36 PO (07:08)
[2017-02-03] MEDS ORDERED: OXYC1TAB63 PO (07:10)
[2017-02-03] MEDS ORDERED: PHARMACY ORDERED LAB XX ONE (07:45)
[2017-02-03] MEDS: PANTOPRAZOLE SOD 40 MG DELAYED RELEASE TAB PO SCH (08:34)
[2017-02-03] MEDS: SODIUM CHLORIDE 0.9% FLUSH 5 ML FLUSH IVF SCH ×2 (08:34→21:23)
[2017-02-03] MEDS: predniSONE 5 MG TAB PO SCH (08:34)
[2017-02-03] MEDS: DOCUSATE SODIUM 100 MG CAP PO SCH ×2 (08:35→21:22)
[2017-02-03] MEDS: cefTRIAXone INJ 1,000 MG in SODIUM CHLORIDE 0.9% INJ 100 ML IV SCH (08:43)
--- NOTE | 2017-02-03 10:33 | HHI.PR ---
Subjective Remarks Follow-up for left elbow infection Afebrile, pain is controlled, no nausea or vomiting, no diarrhea. Hemovac to be removed today. Objective Vitals Vital Signs Date Time Temp Pulse Resp B/P Pulse Ox O2 Delivery O2 Flow Rate FiO2 02/03/17 08:00 97.3 67 18 150/89 95 02/03/17 04:00 97.8 61 18 154/92 95 02/03/17 00:00 98.0 62 18 140/84 94 02/02/17 20:00 97.8 75 18 145/87 95 02/02/17 19:45 Nasal Cannula 2.00 02/02/17 16:00 98.2 76 16 129/75 95 02/02/17 12:07 97.8 63 16 157/81 94 I/O 02/02/17 02/02/17 02/02/17 02/03/17 02/03/17 02/03/17 06:59 14:59 22:59 06:59 14:59 22:59 Intake Total 800 ml 1920 ml 240 ml Output Total 500 ml 1000 ml Balance 300 ml 1920 ml -760 ml Intake Oral 1320 ml 240 ml IV Total 800 ml 600 ml 0 ml Output Urine Total 500 ml 1000 ml Drainage Total 0 ml # Voids 5 # Bowel Movements 0 0 Result Diagram: 02/02/17 0552 02/02/1752 Objective Remarks GENERAL: Well-developed well-nourished. In no acute distress. SKIN: Warm and dry. Left elbow as below. HEENT: Normocephalic. Pupils equal and round. CARDIOVASCULAR: Regular rate and rhythm. No murmur appreciated. RESPIRATORY: No accessory muscle use. Clear to auscultation. Breath sounds equal bilaterally. GASTROINTESTINAL: Abdomen soft, non-tender, nondistended. Bowel sounds x4. MUSCULOSKELETAL: Left elbow in a dressing, CDI. Hand good range of motion, no distal swelling or erythema. No edema. Hemovac and wound VAC in place. NEUROLOGICAL: Awake and alert. No focal neurological deficits. Moves upper and lower extremities spontaneously. Normal speech. PSYCHIATRIC: Appropriate mood and affect; insight and judgment normal. Procedures Irrigation and debridement left septic olecranon bursitis with application of wound VAC A/P Problem List: (1) Septic olecranon bursitis of left elbow ICD Code: M70.22 Status: Acute Assessment and Plan 66-year-old male with past medical history of GERD and fibromyalgia who presented with left elbow pain, swelling, and drainage after surgery Sepsis secondary to postoperative olecranon bursitis: closed olecranon fracture status post triceps tendon repair, admission X-ray shows regional soft tissue swelling instruction of the cortical margin of the olecranon concerning for cellulitis and possibly osteomyelitis. Orthopedics Dr. Beverly, has been consulted, had Irrigation and debridement left septic olecranon bursitis with application of wound VAC, wound culture growing Staphylococcus aureus and gram- negative rods, Staphylococcus aureus sensitive to ceftriaxone, switch vancomycin to ceftriaxone, blood cultures negative to date, continue pain control with oxycodone and IV morphine as needed. Leukocytosis resolved. Range of motion 70 per orthopedics. -Per surgical note, Hemovac to be removed today Fibromyalgia: Ideally the patient would not be on steroids with acute infection. Continue prednisone 5 mg daily. GERD: Chronic, stable. Continue PPI. DVT prophylaxis: SCDs. Chemical prophylaxis per surgery. Consult case management, will likely need home health care and discharge Discharge Planning Discharge once cultures are finalized and cleared by surgery Nicolle Fischer MD Feb 03, 2017 10:33
--- NOTE | 2017-02-03 10:34 | HHI.FF ---
Face to Face Verification Diagnosis: (1) Closed olecranon fracture (2) Septic olecranon bursitis of left elbow Home Health Nursing Order: Signs/symptoms of disease process Medication education-adverse effect Wound care and dressing changes Nursing assessment with vital signs I have seen patient Javier Ibanez on 02/03/17. My clinical findings support the need for the requested home health care services because: Deconditioned w/ increased weakness Limited ability to care for self I certify that my clinical findings support that this patient is homebound because: Post-op weakness Nicolle Fischer MD Feb 03, 2017 10:34
[2017-02-04 00:02] VITALS: BP 148/86; PULSE 64; RESP 16; TEMP 98.1; O2SAT 97
[2017-02-04] MEDS: oxyCODONE/ACETAMINOPHEN 10 MG/325 MG TAB PO PRN ×4 (03:02→22:22)
[2017-02-04 04:24] VITALS: BP 143/92; PULSE 62; RESP 18; TEMP 98.1; O2SAT 95
--- NOTE | 2017-02-04 07:56 | PD.ORT.PN ---
Subjective Post Op Day #: 3 Subjective Remarks Pt sitting upright in bed, awake and answering questions appropriately, out of sling, wound vac draining. Admits left elbow pain is well under control. No other complaints at this time. Objective Vitals Vital Signs Date Time Temp Pulse Resp B/P Pulse Ox O2 Delivery O2 Flow Rate FiO2 02/04/17 04:24 98.1 62 18 143/92 95 02/04/17 00:02 98.1 64 16 148/86 97 02/03/17 20:20 Room Air 02/03/17 20:00 98.2 78 16 148/81 95 02/03/17 16:00 97.8 71 20 143/85 94 02/03/17 12:00 97.6 76 18 144/83 97 02/03/17 10:10 94 21 02/03/17 08:10 Room Air 02/03/17 08:00 97.3 67 18 150/89 95 I/O 02/03/17 02/03/17 02/03/17 02/04/17 02/04/17 02/04/17 07:00 15:00 23:00 07:00 15:00 23:00 Intake Total 240 ml 2400 ml 600 ml 480 ml Output Total 1000 ml 3 ml Balance -760 ml 2400 ml 600 ml 477 ml Intake Oral 240 ml 2400 ml 600 ml 480 ml IV Total 0 ml Output Urine Total 1000 ml 3 ml # Voids 6 2 # Bowel Movements 0 2 0 0 Result Diagram: 02/02/17 0552 02/02/17 0552 Imaging Last 48 hours Impressions Elbow X-Ray 02/01/17 0000 Signed Impressions: Service Date/Time: Wednesday, February 01, 2017 07:29 - CONCLUSION: 1. Regional soft tissue swelling with disruption of the cortical margin of the olecranon concerning for a cellulitis and possible osteomyelitis. 2. Periosteal reaction along the dorsum of the proximal humerus and calcification in the more cephalad soft tissues again, concerning for regional inflammation. Sinan Subramanian MD Procedures Irrigation and debridement left septic olecranon bursitis with application of wound VAC (02/01/17) Objective Remarks LUE: Dressing dry and intact. Bandages removed for exam, no palpable tenderness around surgical site, slight erythema noted around elbow, has decreased significantly compared to pre-op, mild swelling. Wound vac in place and draining appropriately. He has restricted active range of motion, no pain with attempted range of motion. Freely able to move wrist and digits. Good cap refill. 2+ pulses. Neurovascular intact. Assessment & Plan Ortho Post Op Day #: 3 Problem List: (1) Septic olecranon bursitis of left elbow (2) Closed olecranon fracture Assessment and Plan Irrigation and debridement left septic olecranon bursitis with application of wound VAC POD #3 s/p Triceps tendon repair Ortho status stable. Progress rehab per protocol, up to 70 degrees of motion. Okay to come out of sling and into ROM brace. Wound VAC dressing change M, W, F schedule. Culture positive for staph aureus and a gram-negative norma. Final cultures and KORY pending - most likely available today per lab. Follow up with orthopedic clinic in [address] Beverly. Sutures remain in place for 2 weeks. Discharge with home health for VAC changes and home PT/ OT, including active flexion and passive extension. Orthopedic clear for discharge pending finalization of cultures and awaiting recommended home antibiotic therapy per medicine. Dulce Dewitt Feb 04, 2017 07:56
[2017-02-04 08:00] VITALS: BP 147/88; PULSE 69; RESP 18; TEMP 97.8; O2SAT 96
--- NOTE | 2017-02-04 08:09 | HHI.PR ---
Subjective Remarks In nad. Says he feels much better and would like to go home today. He says he doesn't have pain. No n/v/d/c/ Says he feels much better. Objective Vitals Vital Signs Date Time Temp Pulse Resp B/P Pulse Ox O2 Delivery O2 Flow Rate FiO2 02/04/17 04:24 98.1 62 18 143/92 95 02/04/17 00:02 98.1 64 16 148/86 97 02/03/17 20:20 Room Air 02/03/17 20:00 98.2 78 16 148/81 95 02/03/17 16:00 97.8 71 20 143/85 94 02/03/17 12:00 97.6 76 18 144/83 97 02/03/17 10:10 94 21 02/03/17 08:10 Room Air I/O 02/03/17 02/03/17 02/03/17 02/04/17 02/04/17 02/04/17 07:00 15:00 23:00 07:00 15:00 23:00 Intake Total 240 ml 2400 ml 600 ml 480 ml Output Total 1000 ml 3 ml Balance -760 ml 2400 ml 600 ml 477 ml Intake Oral 240 ml 2400 ml 600 ml 480 ml IV Total 0 ml Output Urine Total 1000 ml 3 ml # Voids 6 2 # Bowel Movements 0 2 0 0 Result Diagram: 02/02/17 0552 02/02/17 0552 Imaging Last Impressions Elbow X-Ray 02/01/17 0000 Signed Impressions: Service Date/Time: Wednesday, February 01, 2017 07:29 - CONCLUSION: 1. Regional soft tissue swelling with disruption of the cortical margin of the olecranon concerning for a cellulitis and possible osteomyelitis. 2. Periosteal reaction along the dorsum of the proximal humerus and calcification in the more cephalad soft tissues again, concerning for regional inflammation. Sinan Subramanian MD Objective Remarks GENERAL: 66 yo male, well nourished, well developed patient, appears in nad. SKIN: Warm and dry. HEAD: Atraumatic. Normocephalic. EYES: Pupils equal and round. No scleral icterus. No injection or drainage. ENT: No nasal bleeding or discharge. Mucous membranes pink and moist. NECK: Trachea midline. No JVD. CARDIOVASCULAR: Regular rate and rhythm. RESPIRATORY: No accessory muscle use. Clear to auscultation. Breath sounds equal bilaterally. GASTROINTESTINAL: Abdomen soft, non-tender, nondistended. Hepatic and splenic margins not palpable. MUSCULOSKELETAL: Left elbow wound vac in place. Extremities without clubbing, cyanosis, or edema. No obvious deformities. NEUROLOGICAL: Awake and alert. No obvious cranial nerve deficits. Motor grossly within normal limits. Five out of 5 muscle strength in the arms and legs. Normal speech. PSYCHIATRIC: Appropriate mood and affect; insight and judgment normal. Procedures Irrigation and debridement left septic olecranon bursitis with application of wound VAC A/P Problem List: (1) Septic olecranon bursitis of left elbow ICD Code: M70.22 Status: Acute Assessment and Plan 66-year-old male with past medical history of GERD and fibromyalgia who presented with left elbow pain, swelling, and drainage after surgery Sepsis secondary to postoperative olecranon bursitis: closed olecranon fracture status post triceps tendon repair, admission X-ray shows regional soft tissue swelling instruction of the cortical margin of the olecranon concerning for cellulitis and possibly osteomyelitis. Orthopedics Dr. Beverly, has been consulted, had Irrigation and debridement left septic olecranon bursitis with application of wound VAC, wound culture growing Staphylococcus aureus and gram- negative rods, Staphylococcus aureus sensitive to ceftriaxone, switch vancomycin to ceftriaxone, blood cultures negative to date, continue pain control with oxycodone and IV morphine as needed. Leukocytosis resolved. Range of motion 70 per orthopedics. -Per surgical note, Hemovac to be removed, however not removed yet Fibromyalgia: Ideally the patient would not be on steroids with acute infection. Continue prednisone 5 mg daily. GERD: Chronic, stable. Continue PPI. DVT prophylaxis: SCDs. Chemical prophylaxis per surgery. Consult case management, will likely need home health care and discharge Discharge Planning Discharge once cultures are finalized and cleared by surgery Dionne Camara MD Feb 04, 2017 08:09
[2017-02-04] MEDS: cefTRIAXone INJ 1,000 MG in SODIUM CHLORIDE 0.9% INJ 100 ML IV SCH (09:03)
[2017-02-04] MEDS: PANTOPRAZOLE SOD 40 MG DELAYED RELEASE TAB PO SCH (09:03)
[2017-02-04] MEDS: SODIUM CHLORIDE 0.9% FLUSH 5 ML FLUSH IVF SCH ×2 (09:04→22:23)
[2017-02-04] MEDS: predniSONE 5 MG TAB PO SCH (09:04)
[2017-02-04] MEDS: DOCUSATE SODIUM 100 MG CAP PO SCH ×2 (09:04→22:22)
[2017-02-04] MEDS ORDERED: CIPR500T2 PO (11:40)
[2017-02-04 12:00] VITALS: BP 138/90; PULSE 80; RESP 20; TEMP 97.8; O2SAT 96
[2017-02-04 16:00] VITALS: BP 142/95; PULSE 84; RESP 20; TEMP 97.7; O2SAT 96
--- NOTE | 2017-02-04 19:33 | HHI.DS ---
Discharge Summary Admission Date Jan 31, 2017 at 19:18 Discharge Date: Feb 05, 2017 Admitting Diagnosis left elbow abscess (1) Septic olecranon bursitis of left elbow ICD Code: M70.22 Procedures Irrigation and debridement left septic olecranon bursitis with application of wound VAC Brief History - From Admission 66-year-old male with past medical history of GERD and fibromyalgia who presented with left elbow pain, swelling, and drainage after surgery 2 weeks ago. 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 He had surgical repair done 2 weeks ago. He states that yesterday he removed the dressing and noted that it was draining pus and was more tender. He states that until then he hasn't noticed any change in his postsurgical pain or range of motion of his left elbow. He denies any fevers or chills. He was seen by orthopedic surgery who plans to perform I&D in the OR today. He had been taking oxycodone for pain for the first week after surgery, has not required any pain medication for the last week. The patient complains of a dull headache. He has some back discomfort currently. He denies any chest pain, shortness breath, nausea, vomiting, numbness, tingling. The patient is on 10 mg of prednisone daily for fibromyalgia by his PCP. He was started on 30 mg last June. CBC/BMP: 02/02/17 0552 02/02/17 0552 Significant Findings Laboratory Tests Test 02/02/17 05:52 Red Blood Count 3.96 MIL/MM3 (4.50-5.90) Hemoglobin 12.5 GM/DL (13.0-17.0) Hematocrit 36.0 % (39.0-51.0) Neutrophils (%) (Auto) 78.2 % (16.0-70.0) Random Glucose 107 MG/DL (74-106) Aspartate Amino Transf 7 U/L (15-37) (AST/SGOT) Albumin 2.6 GM/DL (3.4-5.0) Imaging Last Impressions Elbow X-Ray 02/01/17 0000 Signed Impressions: Service Date/Time: Wednesday, February 01, 2017 07:29 - CONCLUSION: 1. Regional soft tissue swelling with disruption of the cortical margin of the olecranon concerning for a cellulitis and possible osteomyelitis. 2. Periosteal reaction along the dorsum of the proximal humerus and calcification in the more cephalad soft tissues again, concerning for regional inflammation. Sinan Subramanian MD PE at Discharge GENERAL: 66 yo male, well nourished, well developed patient, appears in nad. SKIN: Warm and dry. HEAD: Atraumatic. Normocephalic. EYES: Pupils equal and round. No scleral icterus. No injection or drainage. ENT: No nasal bleeding or discharge. Mucous membranes pink and moist. NECK: Trachea midline. No JVD. CARDIOVASCULAR: Regular rate and rhythm. RESPIRATORY: No accessory muscle use. Clear to auscultation. Breath sounds equal bilaterally. GASTROINTESTINAL: Abdomen soft, non-tender, nondistended. Hepatic and splenic margins not palpable. MUSCULOSKELETAL: Left elbow wound vac in place. Extremities without clubbing, cyanosis, or edema. No obvious deformities. NEUROLOGICAL: Awake and alert. No obvious cranial nerve deficits. Motor grossly within normal limits. Five out of 5 muscle strength in the arms and legs. Normal speech. PSYCHIATRIC: Appropriate mood and affect; insight and judgment normal. Hospital Course 66-year-old male with past medical history of GERD and fibromyalgia who presented with left elbow pain, swelling, and drainage after surgery Sepsis secondary to postoperative olecranon bursitis: closed olecranon fracture status post triceps tendon repair, admission X-ray shows regional soft tissue swelling instruction of the cortical margin of the olecranon concerning for cellulitis and possibly osteomyelitis. Orthopedics Dr. Beverly, has been consulted, had Irrigation and debridement left septic olecranon bursitis with application of wound VAC, wound culture growing Staphylococcus aureus and Acinetobacter Baumani, Staphylococcus aureus sensitive to ceftriaxone, switch vancomycin to ceftriaxone, blood cultures negative to date, continue pain control with oxycodone and IV morphine as needed. Leukocytosis resolved. Range of motion 70 per orthopedics. -Per surgical note, Hemovac to be removed, however not removed yet Fibromyalgia: Ideally the patient would not be on steroids with acute infection. Continue prednisone 5 mg daily. GERD: Chronic, stable. Continue PPI. DVT prophylaxis: SCDs. Chemical prophylaxis per surgery. Consult case management, will likely need home health care and discharge Improved, he was Dc in stable condition, all arrangements done for discharge, had wound vac as OP. Patient to follow up as OP with PCP and consultants. Pt Condition on Discharge: Stable Discharge Disposition: Disch w/ Home Health Serv Discharge Time: > 30 minutes Discharge Instructions DIET: Follow Instructions for: As Tolerated, No Restrictions Activities you can perform: Partial Weight Bearing Activities to Avoid: Lifting/Bending Follow up Referrals: Orthopedics - 2 Weeks @ [facility] [place] with Demarcus Beverly MD PCP Follow-up - 3-5 Days SNF/[facility]/ with [facility] Home New Medications: Ciprofloxacin (Ciprofloxacin) 500 Mg Tab 500 MG PO BID Infection #28 Ref 0 TAB Oxycodone-Acetaminophen (Oxycodone-Acetaminophen) 5-325 mg Tab 1 TAB PO Q6H PRN PAIN SCALE 3 TO 5 #40 TAB Continued Medications: Omeprazole (Omeprazole) 40 Mg Cap 40 MG PO DAILY #30 Ref 0 CAP Prednisone (Prednisone) 10 Mg Tab 10 MG PO DAILY Ref 0 TAB Dionne Camara MD Feb 04, 2017 19:33
[2017-02-04 20:00] VITALS: BP 117/71; PULSE 81; RESP 20; TEMP 97.5; O2SAT 95
[2017-02-05] VITALS: BP 119/71; PULSE 66; RESP 18; TEMP 97.7; O2SAT 94
[2017-02-05 04:00] VITALS: BP 132/80; PULSE 59; RESP 16; TEMP 98.2; O2SAT 97
--- NOTE | 2017-02-05 07:19 | PD.ORT.PN ---
Subjective Post Op Day #: 4 Subjective Remarks Pt standing up in room, awake and answering questions appropriately, out of sling, wound vac draining. Admits left elbow pain is well under control at this moment. States there was an increase in pain in the proximal portion late last night. No other complaints at this time. Objective Vitals Vital Signs Date Time Temp Pulse Resp B/P Pulse Ox O2 Delivery O2 Flow Rate FiO2 02/05/17 04:00 98.2 59 16 132/80 97 02/05/17 00:00 97.7 66 18 119/71 94 02/04/17 20:00 Room Air 02/04/17 20:00 97.5 81 20 117/71 95 02/04/17 16:00 97.7 84 20 142/95 96 02/04/17 12:00 97.8 80 20 138/90 96 02/04/17 08:10 Room Air 02/04/17 08:00 97.8 69 18 147/88 96 I/O 02/04/17 02/04/17 02/04/17 02/05/17 02/05/17 02/05/17 07:00 15:00 23:00 07:00 15:00 23:00 Intake Total 480 ml 840 ml 720 ml 240 ml Output Total 3 ml Balance 477 ml 840 ml 720 ml 240 ml Intake Oral 480 ml 840 ml 720 ml 240 ml Output Urine Total 3 ml # Voids 5 8 2 # Bowel Movements 0 1 1 0 Result Diagram: 02/02/17 0552 02/02/17 0552 Imaging Last 48 hours Impressions Elbow X-Ray 02/01/17 0000 Signed Impressions: Service Date/Time: Wednesday, February 01, 2017 07:29 - CONCLUSION: 1. Regional soft tissue swelling with disruption of the cortical margin of the olecranon concerning for a cellulitis and possible osteomyelitis. 2. Periosteal reaction along the dorsum of the proximal humerus and calcification in the more cephalad soft tissues again, concerning for regional inflammation. Sinan Subramanian MD Procedures Irrigation and debridement left septic olecranon bursitis with application of wound VAC (02/01/17) Objective Remarks LUE: Dressing dry and intact. Bandages removed for exam, mild palpable tenderness around perimeter of surgical site, slight erythema noted around elbow , has decreased significantly compared to pre-op, mild swelling. Wound vac in place and draining appropriately. He has restricted active range of motion, no pain with attempted range of motion. Freely able to move wrist and digits. Good cap refill. 2+ pulses. Neurovascular intact. Assessment & Plan Ortho Post Op Day #: 4 Problem List: (1) Septic olecranon bursitis of left elbow (2) Closed olecranon fracture Assessment and Plan Irrigation and debridement left septic olecranon bursitis with application of wound VAC POD #4 s/p Triceps tendon repair Ortho status stable. Progress rehab per protocol, up to 70 degrees of motion. Okay to come out of sling and into ROM brace. Wound VAC dressing change M, W, F schedule. Change wound VAC this AM before D/C Culture positive for staph aureus and a gram-negative norma. Final cultures and KORY reveal Staph Aureus and Acinetobacter. Follow up with orthopedic clinic in [address] Beverly. Sutures remain in place for 2 weeks. Discharge with home health most likely today for VAC changes and home PT/ OT, including aggressive active flexion and passive extension. Discharge home with Cipro antibiotic per medical team. Orthopedic clear for discharge pending home wound VAC unit per case management. Dulce Dewitt Feb 05, 2017 07:19
--- NOTE | 2017-02-05 07:32 | HHI.PR ---
Subjective Remarks No fevers or chills overnight. Says he noticed last night some swelling above the wrap, I did evaluate the patient last night, no redness or pain. Says swelling has improved and not noticeable today. No pain, n/v/d/c. Objective Vitals Vital Signs Date Time Temp Pulse Resp B/P Pulse Ox O2 Delivery O2 Flow Rate FiO2 02/05/17 04:00 98.2 59 16 132/80 97 02/05/17 00:00 97.7 66 18 119/71 94 02/04/17 20:00 Room Air 02/04/17 20:00 97.5 81 20 117/71 95 02/04/17 16:00 97.7 84 20 142/95 96 02/04/17 12:00 97.8 80 20 138/90 96 02/04/17 08:10 Room Air 02/04/17 08:00 97.8 69 18 147/88 96 I/O 02/04/17 02/04/17 02/04/17 02/05/17 02/05/17 02/05/17 06:59 14:59 22:59 06:59 14:59 22:59 Intake Total 480 ml 840 ml 720 ml 240 ml Output Total 3 ml Balance 477 ml 840 ml 720 ml 240 ml Intake Oral 480 ml 840 ml 720 ml 240 ml Output Urine Total 3 ml # Voids 5 8 2 # Bowel Movements 0 1 1 0 Result Diagram: 02/02/17 0552 02/02/17 0552 Imaging Last Impressions Elbow X-Ray 02/01/17 0000 Signed Impressions: Service Date/Time: Wednesday, February 01, 2017 07:29 - CONCLUSION: 1. Regional soft tissue swelling with disruption of the cortical margin of the olecranon concerning for a cellulitis and possible osteomyelitis. 2. Periosteal reaction along the dorsum of the proximal humerus and calcification in the more cephalad soft tissues again, concerning for regional inflammation. Sinan Subramanian MD Objective Remarks GENERAL: 66 yo male, well nourished, well developed patient, appears in nad. SKIN: Warm and dry. HEAD: Atraumatic. Normocephalic. EYES: Pupils equal and round. No scleral icterus. No injection or drainage. ENT: No nasal bleeding or discharge. Mucous membranes pink and moist. NECK: Trachea midline. No JVD. CARDIOVASCULAR: Regular rate and rhythm. RESPIRATORY: No accessory muscle use. Clear to auscultation. Breath sounds equal bilaterally. GASTROINTESTINAL: Abdomen soft, non-tender, nondistended. Hepatic and splenic margins not palpable. MUSCULOSKELETAL: Left elbow wound vac in place. Extremities without clubbing, cyanosis, or edema. No obvious deformities. NEUROLOGICAL: Awake and alert. No obvious cranial nerve deficits. Motor grossly within normal limits. Five out of 5 muscle strength in the arms and legs. Normal speech. PSYCHIATRIC: Appropriate mood and affect; insight and judgment normal. Procedures Irrigation and debridement left septic olecranon bursitis with application of wound VAC A/P Problem List: (1) Septic olecranon bursitis of left elbow ICD Code: M70.22 Status: Acute Assessment and Plan 66-year-old male with past medical history of GERD and fibromyalgia who presented with left elbow pain, swelling, and drainage after surgery Sepsis secondary to postoperative olecranon bursitis: closed olecranon fracture status post triceps tendon repair, admission X-ray shows regional soft tissue swelling instruction of the cortical margin of the olecranon concerning for cellulitis and possibly osteomyelitis. Orthopedics Dr. Beverly, has been consulted, had Irrigation and debridement left septic olecranon bursitis with application of wound VAC, wound culture growing Staphylococcus aureus and Acinetobacter Baumani, Staphylococcus aureus sensitive to ceftriaxone, switch vancomycin to ceftriaxone, blood cultures negative to date, continue pain control with oxycodone and IV morphine as needed. Leukocytosis resolved. Range of motion 70 per orthopedics. -Per surgical note, Hemovac to be removed, however not removed yet Fibromyalgia: Ideally the patient would not be on steroids with acute infection. Continue prednisone 5 mg daily. GERD: Chronic, stable. Continue PPI. DVT prophylaxis: SCDs. Chemical prophylaxis per surgery. Consult case management, will likely need home health care and discharge Discharge Planning Discharge when arrangements done patient needs wound vac. Dionne Camara MD Feb 05, 2017 07:32
[2017-02-05 08:00] VITALS: BP 150/89; PULSE 71; RESP 20; TEMP 98.9; O2SAT 96
[2017-02-05] MEDS: PANTOPRAZOLE SOD 40 MG DELAYED RELEASE TAB PO SCH (08:20)
[2017-02-05] MEDS: predniSONE 5 MG TAB PO SCH (08:20)
[2017-02-05] MEDS: cefTRIAXone INJ 1,000 MG in SODIUM CHLORIDE 0.9% INJ 100 ML IV SCH (08:21)
[2017-02-05] MEDS: SODIUM CHLORIDE 0.9% FLUSH 5 ML FLUSH IVF SCH (08:22)
[2017-02-05] MEDS: DOCUSATE SODIUM 100 MG CAP PO SCH (10:00)
[2017-02-05 10:46] VITALS: O2SAT 95
[2017-02-05 12:00] VITALS: BP 140/86; PULSE 74; RESP 18; TEMP 97.6; O2SAT 97
[2017-02-05] MEDS: oxyCODONE/ACETAMINOPHEN 5 MG/325 MG TAB PO PRN ×2 (12:49→17:37)
--- NOTE | 2017-02-16 06:40 | PQ ---
Physician Query Response Document PATIENT: JAMES FABIAN : 1950 ADMIT DATE: 01/31/2017 7:18 PM DISCH DATE: 02/05/2017 5:48 PM RESPONDING PROVIDER #: [email or web address] QUERY TEXT: Conflicting Documentation Clarification A single mention or documentation of multiple diagnoses for the same clinical presentation appears in the record. Please clarify the diagnosis/diagnoses (Sepsis vs septic bursitis left elbow). Please also document if the condition is: -- Confirmed and current -- Confirmed, treated and resolved -- Ruled out -- Other, please specify If you have any additional questions/comments and/or concerns, please do not hesitate to reach out to the CDI/Coding Hotline, Ext. [phone]. The patient's Clinical Indicators include: Progress Notes by Attending beginning 02/03/17 document: Problem List: (1) Septic olecranon bursitis of left elbow ICD Code: M70.22 Status: Acute Assessment and Plan : 66-year-old male with past medical history of GERD and fibromyalgia who presented with left elbow lori n, swelling, and drainage after surgery Sepsis secondary to postoperative olecranon bursitis: closed olecranon fracture status post triceps tendon repair, admission X-ray shows regional soft tissue swe lling instruction of the cortical margin of the olecranon concerning for cellulitis and possibly oste omyelitis. Orthopedics Dr. Beverly has been consulted, had Irrigation and debridement left septic olec ranon bursitis with application of wound VAC, wound culture growing Staphylococcus aureus and gram-ne gative rods, Staphylococcus aureus sensitive to ceftriaxone, switch vancomycin to ceftriaxone, blood cultures negative to date. Sepsis is NOT documented in the Discharge Summary, by Ortho data warehouse consultant, or elsewhere in the record - Only septic bursitis of left elbow. Query created by: Queta Rhodes on 02/09/2017 9:51 AM RESPONSE TEXT: The condition is called septic olecranon bursitis. Aspirated fluid should not grow any bacteria, is s upposed to be sterile. Our patient however had aspirated fluid with Staph aureus and GNR. Hence the c ondition is called septic olecranon bursitis, and doesn't need sepsis criteria to be called this way. Electronically signed by: Dionne Camara MD 02/16/2017 6:36 AM
== END 2017-02-05 17:48 | disposition home health service (06) | DRG 901 ==
LOC: PHED 17:05 → PHEDA 19:18 → N04A 22:40
PROVIDERS: ADMIT Hospitalist; ATTEND Hospitalist
PROC: 0JBH0ZZ Excision of Left Lower Arm Subcutaneous Tissue and Fascia, Open Approach (ICD-10-PCS; principal; 2017-02-01 12:03)
DX: M96.89 Other intraoperative and postprocedural complications and disorders of the musculoskeletal system (principal); A41.9 Sepsis, unspecified organism; M71.122 Other infective bursitis, left elbow; B95.61 Methicillin susceptible Staphylococcus aureus infection as the cause of diseases classified elsewhere; M79.7 Fibromyalgia; Z79.52 Long term (current) use of systemic steroids; R51 Headache; K21.9 Gastro-esophageal reflux disease without esophagitis
CPT/HCPCS: 73070; 80048; 80053; 85025; 85610; 85730; 86403; 87015; 87040; 87070; 87077; 87102; 87116; 87147; 87186; 87205; 87206; 93005; 96365; J0696; J2175; J2270; J2405; J3010; J3370; J7030; J7040; J7050; J7512

== ENCOUNTER 2017-10-14 20:11 | Emergency (ER) | payer MEDICARE ==
[~2017-10-14] VITALS: Ht 182.9 cm; Wt 80.0 kg
[~2017-10-14 20:11] MED LIST changes: +CIPR500T2 PO; -NORC5TAB PO; +OXYC1TAB63 PO
[2017-10-14 20:21] VITALS: BP 166/77; PULSE 86; RESP 18; TEMP 99.1; O2SAT 96
[2017-10-14] MEDS ORDERED: SODIUM CHLOR 0.9% 1000 ML INJ 1,000 ML IV SCH (20:32)
--- NOTE | 2017-10-14 20:43 | PD ---
HPI Chief Complaint: Abdominal Pain Time Seen by Provider: 20:20 Travel History International Travel<30 days: No Contact w/Intl Traveler<30days: No Traveled to known affect area: No History of Present Illness HPI 67-year-old male presents to the emergency department via EMS for evaluation of groin pain that started today around 3 PM. He states this started and gradually worsened. 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 However, I started today while he was sitting on a couch. He states that if he lays still, the pain will go away. However, if he coughs or moves, the pain will become worse. The patient denies any radiation the pain. He currently rates the pain 3/10 and was laying still, 10/10 with movement. Patient denies any history of the same. Patient denies any testicular pain or swelling. No fevers or chills. No chest pain or shortness of breath. He does report a dry cough. He denies any other abdominal pain. Patient has history of right inguinal hernia surgery, but no other surgeries. Moderate severity. PFSH Past Medical History Cancer: No Cardiovascular Problems: No Endocrine: No GERD: Yes Genitourinary: No Immune Disorder: No Musculoskeletal: Yes (BURSITIS) Neurologic: No Psychiatric: No Respiratory: No Tetanus Vaccination: Unknown Influenza Vaccination: Yes Past Surgical History Abdominal Surgery: Yes (RIGHT HERNIA REPAIR) Social History Alcohol Use: Yes (1 DRINK DAILY) Tobacco Use: No Substance Use: No Allergies-Medications (Allergen,Severity, Reaction): Coded Allergies: No Known Allergies (Unverified Adverse Reaction, Unknown, 10/14/17) Reported Meds & Prescriptions Reported Meds & Active Scripts Active Reported Omeprazole 40 Mg Cap 40 Mg PO DAILY Prednisone 10 Mg Tab 10 Mg PO DAILY Review of Systems Except as stated in HPI: all other systems reviewed are Neg Physical Exam Narrative GENERAL: Well-nourished, well-developed male patient, afebrile. SKIN: Focused skin assessment warm/dry. HEAD: Normocephalic. Atraumatic. EYES: No scleral icterus. No injection or drainage. NECK: Supple, trachea midline. No JVD or lymphadenopathy. CARDIOVASCULAR: Regular rate and rhythm without murmurs, gallops, or rubs. RESPIRATORY: Breath sounds equal bilaterally. No accessory muscle use. Lungs sounds are clear to auscultation. GASTROINTESTINAL: Abdomen soft and nondistended. Patient has pain to the right groin. No inguinal hernia noted on exam. MUSCULOSKELETAL: No cyanosis, or edema. BACK: Nontender without obvious deformity. No CVA tenderness. GENITOURINARY:. Testes descended bilaterally without evidence of rotation. No lesions or erythema. No urethral discharge. His exam was done with RN at bedside. Data Data Last Documented VS Vital Signs Date Time Temp Pulse Resp B/P (MAP) Pulse Ox O2 Delivery O2 Flow Rate FiO2 10/14/17 21:00 81 16 152/70 (97) 95 Room Air 10/14/17 20:21 99.1 Orders Orders Complete Blood Count With Diff (10/14/17 20:32) Comprehensive Metabolic Panel (10/14/17 20:32) Lipase (10/14/17 20:32) Prothrombin Time / Inr (Pt) (10/14/17 20:32) Act Partial Throm Time (Ptt) (10/14/17 20:32) Urinalysis - C+S If Indicated (10/14/17 20:32) Ct Abd/Pel W Iv Contrast(Rout) (10/14/17 20:32) Iv Access Insert/Monitor (10/14/17 20:32) Ecg Monitoring (10/14/17 20:32) Oximetry (10/14/17 20:32) Morphine Inj (Morphine Inj) (10/14/17 20:45) Ondansetron Inj (Zofran Inj) (10/14/17 20:45) Sodium Chlor 0.9% 1000 Ml Inj (Ns 1000 M (10/14/17 20:32) Sodium Chloride 0.9% Flush (Ns Flush) (10/14/17 20:45) Orphenadrine Inj (Norflex Inj) (10/14/17 20:45) Iohexol 350 Inj (Omnipaque 350 Inj) (10/14/17 22:35) Labs Laboratory Tests Test 10/14/17 20:40 10/14/17 22:10 White Blood Count 8.7 TH/MM3 Red Blood Count 4.38 MIL/MM3 Hemoglobin 13.8 GM/DL Hematocrit 40.9 % Mean Corpuscular Volume 93.2 FL Mean Corpuscular Hemoglobin 31.6 PG Mean Corpuscular Hemoglobin Concent 33.9 % Red Cell Distribution Width 14.3 % Platelet Count 265 TH/MM3 Mean Platelet Volume 7.8 FL Neutrophils (%) (Auto) 64.9 % Lymphocytes (%) (Auto) 24.4 % Monocytes (%) (Auto) 8.8 % Eosinophils (%) (Auto) 1.6 % Basophils (%) (Auto) 0.3 % Neutrophils # (Auto) 5.7 TH/MM3 Lymphocytes # (Auto) 2.1 TH/MM3 Monocytes # (Auto) 0.8 TH/MM3 Eosinophils # (Auto) 0.1 TH/MM3 Basophils # (Auto) 0.0 TH/MM3 CBC Comment DIFF FINAL Differential Comment Prothrombin Time 10.4 SEC Prothromb Time International Ratio 1.0 RATIO Activated Partial Thromboplast Time 27.3 SEC Blood Urea Nitrogen 22 MG/DL Creatinine 1.13 MG/DL Random Glucose 106 MG/DL Total Protein 7.3 GM/DL Albumin 3.8 GM/DL Calcium Level 9.0 MG/DL Alkaline Phosphatase 67 U/L Aspartate Amino Transf (AST/SGOT) 30 U/L Alanine Aminotransferase (ALT/SGPT) 22 U/L Total Bilirubin 0.5 MG/DL Sodium Level 140 MEQ/L Potassium Level 4.1 MEQ/L Chloride Level 106 MEQ/L Carbon Dioxide Level 27.3 MEQ/L Anion Gap 7 MEQ/L Estimat Glomerular Filtration Rate 64 ML/MIN Lipase 121 U/L MDM Medical Decision Making Medical Screen Exam Complete: Yes Emergency Medical Condition: Yes Medical Record Reviewed: Yes Differential Diagnosis Muscle strain versus muscle spasm versus nephrolithiasis versus inguinal hernia Narrative Course 67-year-old male presents to the emergency department for evaluation of right groin pain that started today. IV access established. CBC, CMP, lipase, UA, PTT, PT/INR ordered and pending. CT abdomen/pelvis with IV contrast is ordered and pending. CBC shows no acute abnormality. CMP shows shows no acute abnormality. Lipase is 121. Coags are unremarkable. UA and CT abdomen/pelvis are pending. My attending physician, Dr. See, will resume care and disposition of patient. Eva Olson Oct 14, 2017 20:43
[2017-10-14] MEDS ORDERED: SODIUM CHLORIDE 0.9% FLUSH 10 ML FLUSH IV FLUSH PRN (20:45)
[2017-10-14] MEDS ORDERED: ORPHENADRINE INJ 60 MG/2 ML AMP IM ONE (20:45)
[2017-10-14] MEDS ORDERED: MORPHINE SULFATE 4 MG/ML INJ IV PUSH ONE (20:45)
[2017-10-14] MEDS ORDERED: ONDANSETRON HCL 4 MG/2 ML VIAL IVP ONE (20:45)
[2017-10-14 21:00] VITALS: BP 152/70; PULSE 81; RESP 16; O2SAT 95
[2017-10-14 21:13] LABS: AUTOMATED NEUTROPHIL # 5.7 TH/MM3 (1.8-7.7); BASOPHIL % 0.3 % (0.0-2.0); EOSINOPHIL # 0.1 TH/MM3 (0-0.4); EOSINOPHIL % 1.6 % (0.0-4.0); HEMATOCRIT 40.9 % (39.0-51.0); HEMO FLAGS DIFF FINAL; LYMPH % 24.4 % (9.0-44.0); LYMPHOCYTE # 2.1 TH/MM3 (1.0-4.8); MEAN CELL VOLUME 93.2 FL (80.0-100.0); MEAN CORPUSCULAR HEMOGLOBIN 31.6 PG (27.0-34.0); MEAN CORPUSCULAR HGB CONC 33.9 % (32.0-36.0); MONO % 8.8 % (0.0-8.0); NEUT % 64.9 % (16.0-70.0); PLATELET COUNT 265 TH/MM3 (150-450); RED BLOOD COUNT 4.38 MIL/MM3 (4.50-5.90); RED CELL DISTRIBUTION WIDTH 14.3 % (11.6-17.2); WHITE BLOOD COUNT 8.7 TH/MM3 (4.0-11.0)
[2017-10-14 21:25] LABS: APTT (PATIENT) 27.3 SEC (24.3-30.1); PROTHROMBIN TIME - PATIENT 10.4 SEC (9.8-11.6)
[2017-10-14 21:28] LABS: ALT (GPT) 22 U/L (12-78)
[2017-10-14 21:30] LABS: ALKALINE PHOSPHATASE 67 U/L (45-117); TOTAL BILIRUBIN ADULT 0.5 MG/DL (0.2-1.0)
[2017-10-14 21:33] LABS: ANION GAP 7 MEQ/L (5-15); AST (GOT) 30 U/L (15-37); BICARBONATE 27.3 MEQ/L (21.0-32.0); BLOOD UREA NITROGEN 22 MG/DL (7-18); CHLORIDE 106 MEQ/L (98-107); GLOMERULAR FILTRATION RATE 64 ML/MIN (>89); POTASSIUM 4.1 MEQ/L (3.5-5.1); SODIUM (NA) 140 MEQ/L (136-145)
[2017-10-14] MEDS ORDERED: IOHEXOL 350 MG/ML 10 ML VIAL (for RAD DIAG) IVCONTRAST ONE (22:35)
--- NOTE | 2017-10-14 22:52 | RADRPT ---
EXAM DATE/TIME: 10/14/2017 22:28 [facility] COMPARISON: No previous studies available for comparison. INDICATIONS : Right groin pain. IV CONTRAST: 100 cc Omnipaque 350 (iohexol) IV ORAL CONTRAST: No oral contrast ingested. RADIATION DOSE: 7.65 CTDIvol (mGy) MEDICAL HISTORY : Hernia. SURGICAL HISTORY : Hernia repair. ENCOUNTER: Initial ACUITY: 1 day PAIN SCALE: 8/10 LOCATION: Right inguinal TECHNIQUE: Volumetric scanning of the abdomen and pelvis was performed. Using automated exposure control and adjustment of the mA and/or kV according to patient size, radiation dose was kept as low as reasonably achievable to obtain optimal diagnostic quality images. DICOM format image data is av ailable electronically for review and comparison. FINDINGS: There is mild decreased density seen at the liver. No focal hepatic lesions are seen. The spleen, pancreas, and adrenal glands are normal. There are renal cysts seen bilaterally being m ore numerous and larger on the left. The largest cyst on the left side measures 4.3 cm. No hydronep hrosis is seen. The aorta and IVC are grossly normal. The bowel is unremarkable. No pelvic mass is seen. Prostatic calcifications are present. The lung bases are clear. There is degenerative change in the lumbar spine. CONCLUSION: 1. No acute abnormality is seen. 2. Mild hepatic steatosis. 3. Bilateral renal cysts. Perfecto Barajas MD on October 14, 2017 at 22:45 Board Certified Radiologist. This report was verified electronically.
[2017-10-14 23:02] LABS: BLOOD, URINE NEG (NEG); COMMENT (UR) CULT NOT INDICATED; CULTURE IF INDICATED CULT NOT INDICATED; GLUCOSE,URINE NEG (NEG); KETONE, URINE NEG (NEG); MUCUS URINE FEW /lpf (OCC); NITRITE,URINE NEG (NEG); PH, URINE 5.5 (5.0-8.5); SQUAMOUS EPITHELIAL CELL URINE <1 /hpf (0-5); URINE COLOR YELLOW (YELLW/STRAW)
--- NOTE | 2017-10-14 23:06 | PD ---
Physical Exam Narrative GENERAL: Well-nourished, well-developed patient. SKIN: Warm and dry. HEAD: Normocephalic and atraumatic. EYES: No injection or drainage. ENT: No nasal drainage noted. NECK: Supple, trachea midline. CARDIOVASCULAR: Regular rate and rhythm RESPIRATORY: Breath sounds equal bilaterally. No accessory muscle use. GASTROINTESTINAL: Abdomen soft, ttp in rlight lower groin near inguinal area without testicaular involvement, nondistended. EXTREMITIES: No edema. NEUROLOGICAL: Awake and alert. Motor and sensory grossly within normal limits. Normal speech. Data Data Last Documented VS Vital Signs Date Time Temp Pulse Resp B/P (MAP) Pulse Ox O2 Delivery O2 Flow Rate FiO2 10/14/17 23:10 10/14/17 21:00 81 16 95 Room Air 10/14/17 20:21 99.1 Orders Orders Complete Blood Count With Diff (10/14/17 20:32) Comprehensive Metabolic Panel (10/14/17 20:32) Lipase (10/14/17 20:32) Prothrombin Time / Inr (Pt) (10/14/17 20:32) Act Partial Throm Time (Ptt) (10/14/17 20:32) Urinalysis - C+S If Indicated (10/14/17 20:32) Ct Abd/Pel W Iv Contrast(Rout) (10/14/17 20:32) Iv Access Insert/Monitor (10/14/17 20:32) Ecg Monitoring (10/14/17 20:32) Oximetry (10/14/17 20:32) Morphine Inj (Morphine Inj) (10/14/17 20:45) Ondansetron Inj (Zofran Inj) (10/14/17 20:45) Sodium Chlor 0.9% 1000 Ml Inj (Ns 1000 M (10/14/17 20:32) Sodium Chloride 0.9% Flush (Ns Flush) (10/14/17 20:45) Orphenadrine Inj (Norflex Inj) (10/14/17 20:45) Iohexol 350 Inj (Omnipaque 350 Inj) (10/14/17 22:35) Ed Discharge Order (10/14/17 23:04) Ketorolac Inj (Toradol Inj) (10/14/17 23:30) Labs Laboratory Tests Test 10/14/17 20:40 10/14/17 22:10 White Blood Count 8.7 TH/MM3 Red Blood Count 4.38 MIL/MM3 Hemoglobin 13.8 GM/DL Hematocrit 40.9 % Mean Corpuscular Volume 93.2 FL Mean Corpuscular Hemoglobin 31.6 PG Mean Corpuscular Hemoglobin Concent 33.9 % Red Cell Distribution Width 14.3 % Platelet Count 265 TH/MM3 Mean Platelet Volume 7.8 FL Neutrophils (%) (Auto) 64.9 % Lymphocytes (%) (Auto) 24.4 % Monocytes (%) (Auto) 8.8 % Eosinophils (%) (Auto) 1.6 % Basophils (%) (Auto) 0.3 % Neutrophils # (Auto) 5.7 TH/MM3 Lymphocytes # (Auto) 2.1 TH/MM3 Monocytes # (Auto) 0.8 TH/MM3 Eosinophils # (Auto) 0.1 TH/MM3 Basophils # (Auto) 0.0 TH/MM3 CBC Comment DIFF FINAL Differential Comment Prothrombin Time 10.4 SEC Prothromb Time International Ratio 1.0 RATIO Activated Partial Thromboplast Time 27.3 SEC Blood Urea Nitrogen 22 MG/DL Creatinine 1.13 MG/DL Random Glucose 106 MG/DL Total Protein 7.3 GM/DL Albumin 3.8 GM/DL Calcium Level 9.0 MG/DL Alkaline Phosphatase 67 U/L Aspartate Amino Transf (AST/SGOT) 30 U/L Alanine Aminotransferase (ALT/SGPT) 22 U/L Total Bilirubin 0.5 MG/DL Sodium Level 140 MEQ/L Potassium Level 4.1 MEQ/L Chloride Level 106 MEQ/L Carbon Dioxide Level 27.3 MEQ/L Anion Gap 7 MEQ/L Estimat Glomerular Filtration Rate 64 ML/MIN Lipase 121 U/L Urine Color YELLOW Urine Turbidity CLEAR Urine pH 5.5 Urine Specific Duff 1.026 Urine Protein NEG mg/dL Urine Glucose (UA) NEG mg/dL Urine Ketones NEG mg/dL Urine Occult Blood NEG Urine Nitrite NEG Urine Bilirubin NEG Urine Urobilinogen LESS THAN 2.0 MG/DL Urine Leukocyte Esterase NEG Urine RBC 1 /hpf Urine WBC LESS THAN 1 /hpf Urine Squamous Epithelial Cells <1 /hpf Urine Mucus FEW /lpf Microscopic Urinalysis Comment CULT NOT INDICATED MDM Supervised Visit with JORDAN: Yes Interpretation(s) ct abdomen pelvis no acute CBC & BMP Diagram 10/14/17 20:40 Total Protein 7.3, Albumin 3.8, Calcium Level 9.0, Alkaline Phosphatase 67, Aspartate Amino Transf (AST/SGOT) 30, Alanine Aminotransferase (ALT/SGPT) 22, Total Bilirubin 0.5 Narrative Course ed workup no emergent process, Patient states he is still having pain, given toradol and will provide with muscle relaxant script, all questions answered. Patient knows that follow up is incumbent on them and to return to the emergency room immediately if new or worsening symptoms develop. Patient given strict return precautions, vitals reviewed and are normal Diagnosis Primary Impression: Abdominal pain Qualified Codes: R10.9 - Unspecified abdominal pain Patient Instructions: General Instructions Additional Instruction: tylenol as needed, follow with primary, return as needed Med/Other Pt SpecificInfo: Prescription(s) given, No Change to Meds Scripts Metaxalone (Skelaxin) 800 Mg Tablet 800 MG PO TID Y for PAIN SCALE 1 TO 10, #10 Prov: Meaghan See MD 10/14/17 Disposition: 01 DISCHARGE HOME Condition: Stable Meaghan See MD Oct 14, 2017 23:06
[2017-10-14] MEDS ORDERED: KETOROLAC TROMETHAMINE 30 MG/ML (IVP) VIAL IV PUSH ONE (23:30)
[2017-10-14] MEDS ORDERED: META800 PO (23:44)
== END 2017-10-15 00:20 | disposition home or self-care (01) ==
LOC: NEPE 20:11
DX: R10.31 Right lower quadrant pain (principal); R05 Cough
CPT/HCPCS: 74177; 80053; 81001; 83690; 85025; 85610; 85730; 96361; 96372; 96374; 96375; 99285; J1885; J2270; J2360; J2405; J7030; Q9967

== ENCOUNTER 2017-10-15 00:19 | Emergency (ER) | payer MEDICARE ==
[~2017-10-15 00:19] MED LIST changes: +META800 PO
[2017-10-15 00:26] VITALS: BP 138/95; PULSE 86; RESP 20; TEMP 98.1; O2SAT 98
[2017-10-15] MEDS ORDERED: ACETAMINOPHEN/HYDROcodone 325 MG/5 MG TAB PO ONE (02:15)
--- NOTE | 2017-10-15 02:33 | PD ---
HPI Chief Complaint: Abdominal Pain Time Seen by Provider: 00:50 Travel History International Travel<30 days: No Contact w/Intl Traveler<30days: No Traveled to known affect area: No History of Present Illness HPI Patient is a 67-year-old male who was seen just tonight in the ER . he had a CAT scan and he had Toradol IM Skelaxin prescription and discharged to follow-up with his primary care doctor. His labs were normal . His CT only had renal cysts that were not in the area of his pain and otherwise all findings were negative. As he was leaving being wheeled out of the wheelchair he threw himself on the floor had to be lifted by one of the nurses here and then dropped again deadweight to the floor saying 'I am in s in so much pain' Patient in the ER is brought back into head bed in the registered as severe pain in his right inguinal area. Denies trauma . He says that the medication they gave him here in the ER did not help and he was 'discharged and home with Tylenol ' the follow-up and it is not enough to help his pain. PFSH Past Medical History Cancer: No Cardiovascular Problems: No Endocrine: No GERD: Yes Genitourinary: No Immune Disorder: No Implanted Vascular Access Dvce: No Musculoskeletal: Yes (BURSITIS) Neurologic: No Psychiatric: No Respiratory: No ?: Not Past Surgical History Abdominal Surgery: Yes (RIGHT HERNIA REPAIR) Social History Alcohol Use: Yes (1 DRINK DAILY) Tobacco Use: No Substance Use: No Allergies-Medications (Allergen,Severity, Reaction): Coded Allergies: No Known Allergies (Unverified Adverse Reaction, Unknown, 10/15/17) Reported Meds & Prescriptions Reported Meds & Active Scripts Active Skelaxin (Metaxalone) 800 Mg Tablet 800 Mg PO TID PRN Reported Omeprazole 40 Mg Cap 40 Mg PO DAILY Prednisone 10 Mg Tab 10 Mg PO DAILY Review of Systems Except as stated in HPI: all other systems reviewed are Neg (inguinal pain right-sided) Physical Exam Narrative GENERAL: Patient is nontoxic-appearing curled up in the bed when I come into the room not diaphoretic no signs of distress SKIN: Warm and dry. HEAD: Atraumatic. Normocephalic. EYES: Pupils equal and round. No scleral icterus. No injection or drainage. ENT: No nasal bleeding or discharge. Mucous membranes pink and moist. NECK: Trachea midline. No JVD. CARDIOVASCULAR: Regular rate and rhythm. patient has no hernia testicle exam he is no signs of swelling no signs of pain to the testicle itself ,,, no hernia or protrusion of his small bowel into his inguinal canal when he coughs RESPIRATORY: No accessory muscle use. Clear to auscultation. Breath sounds equal bilaterally. GASTROINTESTINAL: Abdomen soft, non-tender, nondistended. Hepatic and splenic margins not palpable. MUSCULOSKELETAL: Extremities without clubbing, cyanosis, or edema. No obvious deformities. NEUROLOGICAL: Awake and alert. No obvious cranial nerve deficits. Motor grossly within normal limits. Five out of 5 muscle strength in the arms and legs. Normal speech. PSYCHIATRIC: Appropriate mood and affect; insight and judgment normal. Data Data Last Documented VS Vital Signs Date Time Temp Pulse Resp B/P (MAP) Pulse Ox O2 Delivery O2 Flow Rate FiO2 10/15/17 03:00 72 16 138/72 (94) 98 Room Air 10/15/17 00:26 98.1 Orders Orders Acetamin-Hydrocod 325-5 Mg ([place] 5-325 (10/15/17 02:15) Ed Discharge Order (10/15/17 02:24) Ed Discharge Order (10/15/17 02:24) MDM Medical Decision Making Medical Screen Exam Complete: Yes Emergency Medical Condition: Yes Differential Diagnosis Inguinal pain muscle strain versus hernia versus pelvic injury versus malingering versus pain pill seeking Narrative Course I explained to the patient that another doctor saw him less than 2 hrs ago in the same ER . His returning back to see another doctor for the same complaint puts this doctor in a very awkward position. I do not feel it is indicated that I should be second-guessing another doctor's decision. patient had a thorough workup with a CAT scan and labs and exam and given Skelaxin he then ended up falling on the floor outside of the ER and had to be picked up and brought back in which seems extreme presentation for a grown man with only a mild pain in his groin. I examine his testicle his groin there is no hernia and there is no torsion. There is no indication for further studies or re- exam. He asked me for pain medication so that he can make it home so he can sleep and see his doctor in the morning. I agree to give him only 2 pain pills here do not give him any prescription as he aren't he has a Skelaxin prescription from the other doctor which is sufficient. Discharged home after he received 2 [place] pills in the ER Diagnosis Primary Impression: Inguinal pain Disposition: 01 DISCHARGE HOME Condition: Good Morris Beal MD Oct 15, 2017 02:33
[2017-10-15 03:00] VITALS: BP 138/72; PULSE 72; RESP 16; O2SAT 98
== END 2017-10-15 03:01 | disposition home or self-care (01) ==
LOC: NEPC 00:19
DX: R10.9 Unspecified abdominal pain (principal); K21.9 Gastro-esophageal reflux disease without esophagitis; Z79.899 Other long term (current) drug therapy
CPT/HCPCS: 99284